=== PATIENT | male | born 1965 | race Caucasian/White ===

== ENCOUNTER 2017-05-02 18:40 | Emergency (ER) | payer OTHER ==
[~2017-05-02] VITALS: Ht 170.2 cm; Wt 99.8 kg
[2017-05-02 19:19] VITALS: BP 121/71
[2017-05-02] MEDS ORDERED: IBUP-1842 PO (19:36)
--- NOTE | 2017-05-02 21:08 | NUR ---
Pt ambulated to bed GI.
--- NOTE | 2017-05-02 21:21 | NUR ---
52/M c/o "staph infection" to bilateral buttocks x2 days. Pt has open lesions to bottom of feet from walking per patient. Hx Hep C and chronic back pain. AOX4, ambulates with steady but uneven gait. Pt denies drainage. Denies fever or chills. Pt reports being homeless at this time. Hx smoking cigaretts and marijuana. Denies drug use or ETOH abuse. VSS. Pt in a gown, resting comfortably in bed.
--- NOTE | 2017-05-02 21:24 | NUR ---
Patient being evaluated by Dr. Livingston at bedside.
[2017-05-02] MEDS ORDERED: HYDROcodone/APAP 5/325 MG 1 TAB TAB PO ONE (21:30)
[2017-05-02] MEDS ORDERED: KETOROLAC 30 MG/ML VIAL IM ONE (21:30)
[2017-05-02 21:58] VITALS: BP 127/82
--- NOTE | 2017-05-02 21:58 | NUR ---
Patient discharged with v/s stable. Written and verbal after care instructions given and explained. Patient alert, oriented and verbalized understanding of instructions. Ambulatory with steady gait. All questions addressed prior to discharge. ID band removed. Patient advised to follow up with PMD. Rx of BACTRIM DS 800/160 MG, TYLENOL NO.3 given. Patient educated on indication of medication including possible reaction and side effects. Opportunity to ask questions provided and answered.
== END 2017-05-02 21:58 | disposition home or self-care (01) ==
LOC: MED 18:40
DX: L98.419 Non-pressure chronic ulcer of buttock with unspecified severity (principal); L97.429 Non-pressure chronic ulcer of left heel and midfoot with unspecified severity; L97.419 Non-pressure chronic ulcer of right heel and midfoot with unspecified severity; J45.909 Unspecified asthma, uncomplicated; I10 Essential (primary) hypertension; Z79.899 Other long term (current) drug therapy; Z91.030 Bee allergy status; Z88.8 Allergy status to other drugs, medicaments and biological substances
CPT/HCPCS: 96372; 99283; J1885

== ENCOUNTER 2017-05-18 06:00 | Emergency (ER) | payer OTHER ==
[~2017-05-18] VITALS: Ht 170.2 cm; Wt 91.2 kg
[~2017-05-18 06:00] MED LIST: MOTRIN400 MG PO; MOTRIN600 MG PO; NORCO 10/325 MG1 TAB PO
[2017-05-18 06:14] VITALS: BP 123/80
[2017-05-18 06:20] VITALS: BP 123/80
--- NOTE | 2017-05-18 06:20 | NUR ---
PATIENT PRESENTS TO ED WITH C/O BACK PAIN X 2 DAYS . PT DENIES N/V/D; SKIN IS PINK/WARM/DRY; AAOX4 WITH EVEN AND STEADY GAIT; LUNGS CLEAR BL; HR EVEN AND REGULAR; PT DENIES ANY FEVER, CP, SOB, OR COUGH AT THIS TIME; PATIENT STATES PAIN OF 7/10 AT THIS TIME; VSS; PATIENT POSITIONED FOR COMFORT; HOB ELEVATED; BEDRAILS UP X2; BED DOWN. ER MD MADE AWARE OF PT STATUS.
[2017-05-18] MEDS ORDERED: KETOROLAC 60 MG/2 ML VIAL IM ONE (06:30)
--- NOTE | 2017-05-18 06:45 | NUR ---
Patient discharged with v/s stable. Written and verbal after care instructions given and explained. Patient alert, oriented and verbalized understanding of instructions. Ambulatory with steady gait. All questions addressed prior to discharge. ID band removed. Patient advised to follow up with PMD. Rx of SOMA AND NORCO given. Patient educated on indication of medication including possible reaction and side effects. Opportunity to ask questions provided and answered.
== END 2017-05-18 06:45 | disposition home or self-care (01) ==
LOC: MED 06:00
DX: M54.42 Lumbago with sciatica, left side (principal); M54.41 Lumbago with sciatica, right side; J45.909 Unspecified asthma, uncomplicated; I10 Essential (primary) hypertension; R03.0 Elevated blood-pressure reading, without diagnosis of hypertension; Z88.8 Allergy status to other drugs, medicaments and biological substances; Z91.030 Bee allergy status
CPT/HCPCS: 96372; 99283; J1885

== ENCOUNTER 2017-05-21 01:56 | Emergency (ER) | payer OTHER ==
[~2017-05-21] VITALS: Ht 170.2 cm; Wt 95.3 kg
[~2017-05-21 01:56] MED LIST changes: +IBUP-1842 PO; -MOTRIN400 MG PO; -MOTRIN600 MG PO; -NORCO 10/325 MG1 TAB PO
[2017-05-21 01:58] VITALS: BP 116/78
--- NOTE | 2017-05-21 02:29 | NUR ---
PT TAKEN TO OF
[2017-05-21 03:00] VITALS: BP 124/75
--- NOTE | 2017-05-21 03:00 | NUR ---
Patient discharged with v/s stable. Written and verbal after care instructions given and explained. Patient alert, oriented and verbalized understanding of instructions. Ambulatory with steady gait. All questions addressed prior to discharge. ID band removed. Patient advised to follow up with PMD. Rx of Bactrim DS given. Patient educated on indication of medication including possible reaction and side effects. Opportunity to ask questions provided and answered.
== END 2017-05-21 03:00 | disposition home or self-care (01) ==
LOC: MED 01:56
DX: Z76.0 Encounter for issue of repeat prescription (principal); L73.9 Follicular disorder, unspecified; J45.909 Unspecified asthma, uncomplicated; I10 Essential (primary) hypertension; Z88.8 Allergy status to other drugs, medicaments and biological substances; Z91.030 Bee allergy status
CPT/HCPCS: 99283

== ENCOUNTER 2017-06-16 23:25 | Emergency (ER) | payer OTHER ==
[~2017-06-16] VITALS: Ht 170.2 cm; Wt 95.3 kg
[2017-06-16 23:40] VITALS: BP 121/72
--- NOTE | 2017-06-17 00:01 | NUR ---
PT TAKEN TO BED 12
--- NOTE | 2017-06-17 00:05 | NUR ---
52/M C/O 03/23 SHARP SHOOTING RT LOWER BACK PAIN RADIATING TO BRITTANY LEGS X 4 DAYS. 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 ER MD MADE AWARE OF PT STATUS.
--- NOTE | 2017-06-17 00:08 | NUR ---
Dr. Livingston evaluating patient at bedside.
[2017-06-17] MEDS ORDERED: KETOROLAC 30 MG/ML VIAL IM ONE (00:20)
[2017-06-17] MEDS ORDERED: HYDROcodone/APAP 5/325 MG 1 TAB TAB PO ONE (00:20)
[2017-06-17 00:55] VITALS: BP 136/78
--- NOTE | 2017-06-17 00:55 | NUR ---
Patient discharged with v/s stable. Written and verbal after care instructions given and explained. Patient alert, oriented and verbalized understanding of instructions. Ambulatory with steady gait. All questions addressed prior to discharge. ID band removed. Patient advised to follow up with PMD. Rx of ULTRAM 50MG ONE TAB PO 4 TIMES A DAY PRN PAIN given. Patient educated on indication of medication including possible reaction and side effects. Opportunity to ask questions provided and answered. HOMELESS PACKET PROVIDED
== END 2017-06-17 00:55 | disposition home or self-care (01) ==
LOC: MED 23:25
DX: M54.41 Lumbago with sciatica, right side (principal); Z88.8 Allergy status to other drugs, medicaments and biological substances; J45.909 Unspecified asthma, uncomplicated; I10 Essential (primary) hypertension
CPT/HCPCS: 96372; 99283; J1885

== ENCOUNTER 2017-06-24 17:26 | Emergency (ER) | payer OTHER ==
[~2017-06-24] VITALS: Ht 162.6 cm; Wt 85.4 kg
--- NOTE | 2017-06-24 17:40 | NUR ---
PT IN RESTROOM IN ER LOBBY
[2017-06-24 18:02] VITALS: BP 148/85
--- NOTE | 2017-06-24 18:59 | NUR ---
Patient to bed 06.
--- NOTE | 2017-06-24 19:13 | NUR ---
Patient being evaluated by Dr. Lowe at bedside.
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
--- NOTE | 2017-06-24 19:50 | NUR ---
Patient discharged with v/s stable. Written and verbal after care instructions given and explained. Patient alert, oriented and verbalized understanding of instructions. Ambulatory with steady gait. All questions addressed prior to discharge. ID band removed. Patient advised to follow up with PMD. Rx of NAPROXEN 500MG AND FLEXERIL 5MG, BACTRIM DS TAB given. Patient educated on indication of medication including possible reaction and side effects. Opportunity to ask questions provided and answered.
[2017-06-24 19:51] VITALS: BP 132/84
== END 2017-06-24 19:50 | disposition home or self-care (01) ==
LOC: MED 17:26
DX: L73.9 Follicular disorder, unspecified (principal); M54.41 Lumbago with sciatica, right side; J45.909 Unspecified asthma, uncomplicated; I10 Essential (primary) hypertension; F17.210 Nicotine dependence, cigarettes, uncomplicated; Z88.8 Allergy status to other drugs, medicaments and biological substances; Z91.030 Bee allergy status
CPT/HCPCS: 99283

== ENCOUNTER 2017-06-28 10:33 | Emergency (ER) | payer OTHER ==
[~2017-06-28] VITALS: Ht 170.2 cm; Wt 85.3 kg
--- NOTE | 2017-06-28 10:33 | NUR ---
Patient was BIB [place] [facility] and taken to OF chair waiting to be evaluated by ER .
[2017-06-28 10:38] VITALS: BP 125/78
--- NOTE | 2017-06-28 10:46 | NUR ---
PATIENT IS A52 YO MALE BIB [facility] FOR PRE BOOK EXAM, HE IS AWAKE AND ALERT, ABLE TO AMBULATE. ON ARRIVAL HE IS C/O CHEST WALL PAIN. HX OF CHRONIC BACK PAIN.
--- NOTE | 2017-06-28 11:11 | NUR ---
PATIENT SIGNED OUT BY DONALD IBARRA AND PLACED IN BED 10 FOR FUJRTHER TESTING.
[2017-06-28] MEDS ORDERED: PIPERACILLIN/TAZOBACTAM 3.375 GM in DEXTROSE 5% 50 ML IV ONE (11:15)
[2017-06-28] MEDS ORDERED: VANCOMYCIN 1,000 MG in DEXTROSE 5% 250 ML IV ONE (11:15)
[2017-06-28] MEDS ORDERED: NACL 0.9% 1,000 ML IV ONE (11:15)
[2017-06-28] MEDS ORDERED: VANCOMYCIN 1,000 MG VIAL ONE (11:25)
[2017-06-28] MEDS ORDERED: PIPERACILLIN/TAZOBACTAM 3.375 GM VIAL IV ONE (11:25)
[2017-06-28 11:37] LABS: BASOPHILS # (AUTO) 0.1 K/uL (0.00-0.22); BASOPHILS % (AUTO) 1.4 % (0.0-2.0); EOSINOPHILS # (AUTO) 0.2 K/uL (0-0.4); EOSINOPHILS % (AUTO) 1.6 % (0.0-4.0); HEMATOCRIT 37.3 % (36-52); HEMOGLOBIN 12.6 g/dL (12.0-18.0); LYMPHOCYTES # (AUTO) 1.6 K/uL (2.0-11.5); LYMPHOCYTES % (AUTO) 16.8 % (20.5-51.1); MEAN CORPUSCULAR HEMOGLOBIN 31 pg (27-31); MEAN CORPUSCULAR HGB CONC 34 g/dL (33-37); MEAN CORPUSCULAR VOLUME 90 fL (80-94); MONOCYTES # (AUTO) 0.9 K/uL (0.8-1.0); NEUTROPHILS # (AUTO) 6.6 K/uL (1.8-7.7); NEUTROPHILS % (AUTO) 70.2 % (42.2-75.2); PLATELET COUNT (AUTO) 301 K/uL (140-450); RED BLOOD CELL COUNT(AUTO) 4.15 MIL/uL (4.20-6.10); RED CELL DISTRIBUTION WIDTH 14.2 % (11.6-13.7); WHITE BLOOD COUNT (AUTO) 9.4 K/uL (4.8-10.8)
--- NOTE | 2017-06-28 11:53 | NUR ---
IV ESTABLISHED AND ALL LABSDRAWN, ANTIBIOTICS STARTED, PATIENT HAS CELLULITIS TO UPPR LIP AND LEFT JAW.
[2017-06-28 12:26] LABS: ANION GAP 9.8 (8-16); CREATININE 0.9 mg/dL (0.7-1.3); POTASSIUM 3.8 mmol/L (3.5-5.1)
[2017-06-28 12:32] LABS: ALBUMIN 3.3 g/dL (3.4-5.0); TOTAL BILIRUBIN 0.5 mg/dL (0.0-1.0)
[2017-06-28] MEDS ORDERED: ACETAMINOPHEN 325 MG TAB PO PRN (13:05)
[2017-06-28] MEDS ORDERED: ONDANSETRON 4 MG/2 ML VIAL IVP PRN (13:05)
--- NOTE | 2017-06-28 13:48 | NUR ---
admitted to /s by dr. arguello, report called and patient transported via wheelchair to /s.
--- NOTE | 2017-06-28 13:57 | NUR ---
ARRIVED ON THE UNIT WITH 2 ER NURSES. PT IS AWAKE, ALERT AND ORIENTED. INTRODUCED MYSELF AND UPDATED THE BOARD. PT IS AMBULATORY. AMBULATED FROM GURNEY TO BED. PT HAS AN IV ON R AC 20G NS BAG 1/[address] OPEN. NOTED THE SWELLING ON UPPER LIP. C/O PAIN IN LOWER EXTREMITIES FROM WALKING TOO MUCH. NO OTHER COMPLAINTS. DENIES PAIN IN THE UPPER LIP. V/S WITHIN NORMAL RANGE. WILL START THE ADMISSION.
[2017-06-28 14:00] VITALS: BP 118/72
--- NOTE | 2017-06-28 15:48 | NUR ---
PT RESTING COMFORTABLY. V/S WITHIN NORMAL RANGE. NO COMPLAINTS AT THIS TIME. WILL CONTINUE TO MONITOR PT.
[2017-06-28 16:00] VITALS: BP 126/99
[2017-06-28] MEDS: HYDROcodone/APAP 5/325 MG 1 TAB TAB PO PRN (18:23)
--- NOTE | 2017-06-28 19:26 | NUR ---
ENDORSED PT TO THE CELLOPHANE WORKER NURSE AT BEDSIDE FOR CONTINUITY OF CARE. PT IN STABLE CONDITION.
--- NOTE | 2017-06-28 19:27 | NUR ---
RECEIVED PT FROM SEUN RN PT IS AAOX4 AMBULATORY WITH DX OF LEFT FACE CELLULITIS DENIES ANY PAIN AT THIS TIME INITIAL ASSESSMENT DONE
[2017-06-28 20:00] VITALS: BP 127/77
[2017-06-28] MEDS: NAPROXEN 375 MG TAB PO SCH (21:00)
--- NOTE | 2017-06-28 21:40 | NUR ---
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
--- NOTE | 2017-06-28 22:00 | NUR ---
PT SLEEPING WELL DENIES ANY PAIN OR DISCOMFORT AT THIS TIME
[2017-06-28] MEDS: PANTOPRAZOLE 40 MG TABEC PO SCH (22:39)
--- NOTE | 2017-06-29 02:00 | NUR ---
PT SLEEPING WELL DENIES ANY PAIN
[2017-06-29] MEDS ORDERED: VANCOMYCIN 1,000 MG VIAL ONE (02:22)
[2017-06-29] MEDS: VANCOMYCIN 1GM/DEXT 5% PREMIX 200 ML IV SCH ×2 (02:27→13:12)
--- NOTE | 2017-06-29 02:27 | NUR ---
at 0227 PT STARTED TO BE INFUSING VANCOMYCIN 1 GRAM IVPB AND END AT 0327 AM
--- NOTE | 2017-06-29 05:43 | NUR ---
PT A NEW IV IS INSERTED ON LEFT FA GAUGE #20 BY TOY DIALLO, DENIES ANY PAIN OR DISCOMFORT
--- NOTE | 2017-06-29 06:55 | NUR ---
PT SLEEPING WELL DENIES ANY PAIN OR DISCOMFORT
[2017-06-29 08:00] VITALS: BP 125/71
[2017-06-29] MEDS ORDERED: VANCOMYCIN PER PHARMACY MC PRN (08:00)
[2017-06-29] MEDS: NAPROXEN 375 MG TAB PO SCH (08:38)
[2017-06-29] MEDS: PANTOPRAZOLE 40 MG TABEC PO SCH (08:38)
--- NOTE | 2017-06-29 08:42 | NUR ---
PATIENT HAS BEEN SCREENED AND CATEGORIZED LOW NUTRITION RISK. PATIENT WILL BE SEEN WITHIN 7 DAYS OF ADMISSION. 07/05/[address]
--- NOTE | 2017-06-29 08:45 | NUR ---
REPORT RECEIVED FROM SHADI RN, PT WALKING AROUND IN ROOM IN NAD, RESP EVEN UNLABORED, SKIN WARM DRY COLOR WNL, SWELLING TO LEFT UPPER LIP AND LEFT CHEEK, NO DRAINAGE NOTED, SKIN INTACT, PLAN OF CARE DISCUSSED, PT VERBALIZED FULL UNDERSTANDING, PT DENIES PAIN OR DISCOMFORT, CALL [place] WITHIN REACH, SIDE RAILS UP, WILL CONTINUE TO MONITOR.
[2017-06-29] MEDS ORDERED: [UNRECOGNIZED DRUG - CODE] PO ×2 (11:52→11:58)
[2017-06-29] MEDS ORDERED: BACL10TA4 PO ×2 (11:52→11:58)
[2017-06-29] MEDS ORDERED: SULF1TAB12 PO ×2 (11:52→11:58)
--- NOTE | 2017-06-29 12:00 | NUR ---
DR SEVILLA AT BEDSIDE, PT TO DC TODAY, PLAN OF CARE DISCUSSED WITH PT, PT AGREEABLE.
[2017-06-29] MEDS: HYDROcodone/APAP 5/325 MG 1 TAB TAB PO PRN (12:41)
--- NOTE | 2017-06-29 13:15 | NUR ---
ROSALIAO STARTED, WILL DC WHEN ROSALIAO DONE, DISCHARGE INSTRUCTION DISCUSSED VERBALLY, PT TO F/U WITH PCP WITHIN 3-5 DAYS, TAKE MEDICATION PRESCRIBED BY DR SEVILLA, PT GIVEN HOMELESS RESOURCES, [facility] INFO AND COUPON, WAIVER SIGNED, AWAITING ELECTRONIC PRESCRIPTION TO BE COMPLETED BY DR SEVILLA.
--- NOTE | 2017-06-29 14:45 | NUR ---
PT STATES HE HAS AN APPOINTMENT WITH [facility] AT 1500, HE CAN NOT WAIT FOR DC PAPERS TO SIGN, UNABLE TO PRINT PAPERS DUE TO UNCOMPLETED ELECTRONIC PRESCRIPTION BY DR SEVILLA, PT LEFT WITHOUT DC PAPERS, PT VERBALIZED UNDERSTANDING OF PICKING UP RX MEDS AT [facility] AND FOLLOW UP WITH PCP IN 3-5 DAYS, PT WALKED OUT WITH STEADY GAIT. Addendum: 06/29/17 at 1513 by Pebbles Giordano RN IV DC'D, CATH TIP INTACT, BLEEDING CONTROLLED, PT ASHLIE WELL.
== END 2017-06-29 15:20 | disposition home or self-care (01) ==
LOC: MED 10:33 → MTU 13:02 → INTOOBSV 13:02 → MTU 13:49
PROVIDERS: ADMIT Hospitalist; ATTEND Hospitalist
DX: L02.02 Furuncle of face (principal); K21.9 Gastro-esophageal reflux disease without esophagitis; I10 Essential (primary) hypertension; J45.909 Unspecified asthma, uncomplicated; Z59.0 Homelessness; Z87.891 Personal history of nicotine dependence; Z86.19 Personal history of other infectious and parasitic diseases
CPT/HCPCS: 36415; 80053; 83605; 85025; 87040; 87081; 96365; 96366; 96367; 99285; G0378; J2543; J3370; J7030; J7060

== ENCOUNTER 2017-07-13 03:55 | Emergency (ER) | payer OTHER ==
[~2017-07-13] VITALS: Ht 170.2 cm; Wt 86.2 kg
[~2017-07-13 03:55] MED LIST changes: +BACL10TA4 PO; -IBUP-1842 PO; +SULF1TAB12 PO; +[UNRECOGNIZED DRUG - CODE] PO
[2017-07-13 04:07] VITALS: BP 121/77
--- NOTE | 2017-07-13 04:15 | NUR ---
AMBULATED TO ER BED 3
--- NOTE | 2017-07-13 04:20 | NUR ---
52/M CAME IN W C/O 02/20 PAIN TO RT HIP RADIATING TO RT KNEE X 1 MONTH. 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 LAST TOOK IBUPROFEN YESTERDAY AT 0800, DENIES RELIEF. DENIES INJURY/TRAUMA, ABLE TO AMBULATE, FULL ROM, +PMSC TO RLE. PMH: HEP C, SCIATICA
[2017-07-13] MEDS ORDERED: KETOROLAC 60 MG/2 ML VIAL IM ONE (04:35)
--- NOTE | 2017-07-13 05:45 | NUR ---
Patient discharged with v/s stable. Written and verbal after care instructions given and explained. Patient alert, oriented and verbalized understanding of instructions. Ambulatory with steady gait. All questions addressed prior to discharge. ID band removed. Patient advised to follow up with PMD. Rx of NAPROSYN AND SOMA given. Patient educated on indication of medication including possible reaction and side effects. Opportunity to ask questions provided and answered. Patient given written and verbal discharge instructions and verbalizes understanding. Given copies of tests performed during visit. Patient is awake, alert and oriented. Ambulatory with steady gait. Refuses offer of halfway placement. Given list of available shelters in surrounding areas.
[2017-07-13 05:46] VITALS: BP 138/78
== END 2017-07-13 05:45 | disposition home or self-care (01) ==
LOC: MED 03:55
DX: M54.31 Sciatica, right side (principal); J45.909 Unspecified asthma, uncomplicated; I10 Essential (primary) hypertension; Z88.8 Allergy status to other drugs, medicaments and biological substances; Z91.030 Bee allergy status
CPT/HCPCS: 96372; 99283; J1885

== ENCOUNTER 2017-08-10 19:22 | Emergency (ER) | payer OTHER ==
[~2017-08-10] VITALS: Ht 170.2 cm; Wt 84.9 kg
[2017-08-10 19:45] VITALS: BP 124/79
--- NOTE | 2017-08-10 21:50 | NUR ---
52.M CAME IN WITH C/O CHRONIC BACK PAIN WITH MUSCLE SPASMS RADIATING TO RT KNEE/LEG R/T SCIATICA. DENIES WEAKNESS, NUMBNESS/TINGLING AT THIS TIME, NO INJURY/TRAUMA REPORTED. PT RUN OUT OF PAIN MEDS AND DOES NOT HAVE PCP AT THIS TIME. PT STATES ITS PAINFUL TO AMBULATE, AMBULATED TO BED WITH STEADY GAIT. DENIES TAKING PAIN MEDS TODAY.
[2017-08-10] MEDS ORDERED: IBUPROFEN 800 MG TAB PO ONE (22:30)
--- NOTE | 2017-08-10 22:50 | NUR ---
Patient discharged with v/s stable. Written and verbal after care instructions given and explained. Patient alert, oriented and verbalized understanding of instructions. Ambulatory with steady gait. All questions addressed prior to discharge. ID band removed. Patient advised to follow up with PMD. Rx of SOMA, IBUPROFEN AND TRAMADOL given. Patient educated on indication of medication including possible reaction and side effects. Opportunity to ask questions provided and answered.
[2017-08-10 22:58] VITALS: BP 136/72
== END 2017-08-10 22:50 | disposition home or self-care (01) ==
LOC: MED 19:22
DX: M54.5 Low back pain (principal); G89.29 Other chronic pain; J45.909 Unspecified asthma, uncomplicated; I10 Essential (primary) hypertension; M54.30 Sciatica, unspecified side; Z88.8 Allergy status to other drugs, medicaments and biological substances
CPT/HCPCS: 99283

== ENCOUNTER 2017-08-20 01:43 | Inpatient (IN) | payer OTHER ==
[~2017-08-20] VITALS: Ht 170.2 cm; Wt 85.7 kg
[2017-08-20 01:47] VITALS: BP 109/61
--- NOTE | 2017-08-20 01:53 | NUR ---
TO LOBBY, EDGAR DRAKE,A/W BED, TATIANNA NOTED
--- NOTE | 2017-08-20 05:09 | NUR ---
PT AMBULATED TO ER OF1
--- NOTE | 2017-08-20 05:10 | NUR ---
PATIENT PRESENTS TO ED WITH REDNESS, SWELLING, PAIN ON HIS LEFT LEG STARTED TODAY PT DENIES N/V/D; AAOX4 WITH EVEN AND STEADY GAIT; LUNGS CLEAR BL; HR EVEN AND REGULAR; PT DENIES ANY FEVER, CP, SOB, OR COUGH AT THIS TIME; PATIENT STATES PAIN OF 7/10 AT THIS TIME; VSS; PATIENT POSITIONED FOR COMFORT; HOB ELEVATED; BEDRAILS UP X2; BED DOWN. ER MD MADE AWARE OF PT STATUS.
--- NOTE | 2017-08-20 08:12 | NUR ---
PATIENT TAKEN TO US/XR VIA WC
--- NOTE | 2017-08-20 08:31 | NUR ---
PATIENT MOVED TO BED#2
[2017-08-20 09:20] LABS: MEAN CORPUSCULAR HEMOGLOBIN 28 pg (27-31)
[2017-08-20 09:31] LABS: HEMATOCRIT 45.3 % (36-52); HEMOGLOBIN 14.6 g/dL (12.0-18.0); MEAN CORPUSCULAR HGB CONC 32 g/dL (33-37); MEAN CORPUSCULAR VOLUME 88 fL (80-94); PLATELET COUNT (AUTO) 234 K/uL (140-450); RED BLOOD CELL COUNT(AUTO) 5.18 MIL/uL (4.20-6.10); RED CELL DISTRIBUTION WIDTH 13.3 % (11.6-13.7); WHITE BLOOD COUNT (AUTO) 22.5 K/uL (4.8-10.8)
[2017-08-20 09:43] LABS: BASOPHILS % (MANUAL) 0 % (0-2); EOSINOPHILS % (MANUAL) 0 % (0-4); LYMPHOCYTES % (MANUAL) 12 % (20-46); MONOCYTES % (MANUAL) 3 % (5-12)
[2017-08-20 10:02] LABS: PROTHROMBIN TIME 10.7 secs (10.8-13.4)
[2017-08-20 10:54] LABS: ANION GAP 18.5 (8-16); CARBON DIOXIDE 25.8 mmol/L (21-32); POTASSIUM 3.3 mmol/L (3.5-5.1)
[2017-08-20 10:55] LABS: CREATININE 1.1 mg/dL (0.7-1.3); TOTAL BILIRUBIN 0.8 mg/dL (0.0-1.0)
[2017-08-20 10:56] LABS: ALBUMIN 3.9 g/dL (3.4-5.0)
[2017-08-20] MEDS ORDERED: ENOXAPARIN 80 MG/0.8 ML SYR SUBQ ONE (11:00)
[2017-08-20] MEDS ORDERED: CLINDAMYCIN 600 MG in DEXTROSE 5% 50 ML IV ONE (11:20)
[2017-08-20] MEDS ORDERED: ENOXAPARIN 100 MG/ML SYR SUBQ ONE (11:37)
[2017-08-20] MEDS ORDERED: CLINDAMYCIN 600 MG/4 ML VIAL ONE (11:51)
[2017-08-20] MEDS ORDERED: ACETAMINOPHEN EXTRA STRENGTH 500 MG TAB PO ONE (12:05)
[2017-08-20] MEDS: NACL 0.9% 1,000 ML IV SCH ×2 (12:12→22:12)
[2017-08-20] MEDS ORDERED: VANCOMYCIN PER PHARMACY MC PRN (12:15)
[2017-08-20] MEDS ORDERED: ONDANSETRON 4 MG/2 ML VIAL IVP PRN (12:15)
--- NOTE | 2017-08-20 12:50 | NUR ---
Patient will be admitted to care of DR SARABIA. Admited to TELE. Will go to room 118. Belongings list completed. Report to TOY LORA.
[2017-08-20] MEDS ORDERED: PIPERACILLIN/TAZOBACTAM 3.375 GM in DEXTROSE 5% 50 ML IV SCH (13:00)
[2017-08-20 13:15] VITALS: BP 118/58
--- NOTE | 2017-08-20 13:15 | NUR ---
PATIENT ADMITTED TO THE UNIT FROM THE EMERGENCY ROOM. PT AAOX4. PATIENT IS ROOM AIR AND NO SIGNS OF RESPIRATORY DISTRESS OR SHORTNESS OF BREATH. IV LINE NOTED ON THE LEFT FOREARM SL. ERYTHEMA AND SWELLING NOTED ON LEFT LOWER LEG. PATIENT COMPLAINS OF LEFT LEG PAIN 7/10. WILL MEDICATE PATIENT. TEMPERATURE OF PATIENT IS 100.2. COOLING MEASURES IN PLACE. PATIENT PLACED ON TELE MONITORING. BED LOWERED AND CALL LIGHT WITHIN REACH OF PATIENT. WILL CONTINUE TO MONITOR PATIENT.
[2017-08-20] MEDS: PIPER/TAZO 3.375GM/D5W PREMIX 50 ML IV SCH ×2 (13:25→20:53)
[2017-08-20 13:34] LABS: BARBITURATE, URINE NEG. ng/ml (NEG <=200); BENZODIAZEPINE, URINE NEG. ng/mL (NEG <=200); CANNABINOID, URINE POS. ng/mL (NEG <=50); COCAINE, URINE NEG. ng/mL (NEG <=300); OPIATE, URINE NEG. ng/mL (NEG <=2000); PHENCYCLIDINE SCREEN,URINE NEG. ng/mL (NEG <=25)
[2017-08-20] MEDS: MORPHINE SULFATE 2 MG/ML SYR IVP PRN ×2 (13:34→20:53)
[2017-08-20 13:39] LABS: APPEARANCE,URINE CLEAR (CLEAR); BILIRUBIN,URINE 1+ (NEGATIVE); BLOOD, URINE 1+ (NEGATIVE); COLOR,URINE ORANGE (YELLOW); LEUKOCYTE ESTERASE ,URINE NEGATIVE (NEGATIVE); NITRITE, URINE NEGATIVE (NEGATIVE); PH,URINE 5.5 (5.0-9.0); UGLUCOSE NEGATIVE (NEGATIVE)
[2017-08-20 13:45] LABS: RBC,URINE 0-5 (RARE) /HPF (0-5); WBC,URINE 0-5 (RARE) /HPF (0-5)
[2017-08-20] MEDS: VANCOMYCIN 1GM/DEXT 5% PREMIX 200 ML IV SCH (14:22)
[2017-08-20] MEDS ORDERED: ALBUTEROL SULFATE/IPRATROPIU 3 ML SOL IH PRN (16:10)
[2017-08-20 18:00] VITALS: BP 127/62
--- NOTE | 2017-08-20 18:00 | NUR ---
TEMPERATURE IS 100.2 AT THIS TIME. PRN TYLENOL ADMINISTERED TO REDUCE TEMPERATURE. COOLING MEASURES IN PLACE. WILL CONTINUE TO MONITOR PATIENT.
[2017-08-20] MEDS: ACETAMINOPHEN 325 MG TAB PO PRN (18:04)
--- NOTE | 2017-08-20 19:20 | NUR ---
TEMP 99.8 TAKEN ORALLY. PATIENT REPORT GIVEN AT BEDSIDE. PATIENT ENDORSED IN STABLE CONDITION.
--- NOTE | 2017-08-20 19:21 | NUR ---
RECEIVED HANDOFF REPORT FROM AM RN. PATIENT A&OX4. PATIENT STATES PAIN WILL MEDICATE ORDERED. PATIENT IV PATENT AND INTACT. NO SIGNS OR SYMPTOMS OF ACUTE DISTRESS NOTED. CALL LIGHT WITHIN REACH. WILL CONTINUE TO MONITOR.
[2017-08-20 20:00] VITALS: BP 114/62
--- NOTE | 2017-08-20 20:53 | NUR ---
PM MEDS GIVEN WITH EDUCATION. PATIENT VERBALIZED UNDERSTANDING. PATIENT EDUCATED REGARDING DIAGNOSIS DVT. PATIENT TOLD TO STAY IN BED, WILL PROVIDE FREQUENT TOILETING AND PROVIDE ASSISTANCE WITH ACTIVITY. PATIENT VERBALIZED UNDERSTANDING. PATIENT NOT IN DISTRESS. TEMP IS 99.9. SAFETY MEASURES ENSURED. WILL CONTINUE TO MONITOR.
[2017-08-20] MEDS: ENOXAPARIN 80 MG/0.8 ML SYR SUBQ SCH (21:05)
[2017-08-21] VITALS: BP 135/72
[2017-08-21] MEDS: ACETAMINOPHEN 325 MG TAB PO PRN (01:36)
--- NOTE | 2017-08-21 01:45 | NUR ---
PATIENT HAS FEVER 103.1. TYLENOL GIVEN. COOLING MEASURES IN USE. WILL CONTINUE TO MONITOR.
[2017-08-21] MEDS: VANCOMYCIN 1GM/DEXT 5% PREMIX 200 ML IV SCH (02:48)
[2017-08-21 04:00] VITALS: BP 101/57
--- NOTE | 2017-08-21 04:03 | NUR ---
PATIENTS TEMP IS 99.4. PATIENT DENIES PAIN. NO SIGNS OR SYMPTOMS OF ACUTE DISTRESS NOTED. CALL LIGHT WITHIN REACH. WILL CONTINUE TO MONITOR.
[2017-08-21] MEDS: PIPER/TAZO 3.375GM/D5W PREMIX 50 ML IV SCH ×3 (04:49→20:00)
[2017-08-21] MEDS: NACL 0.9% 1,000 ML IV SCH ×3 (05:43→20:00)
[2017-08-21 06:58] LABS: BASOPHILS # (AUTO) 0.4 K/uL (0.00-0.22); BASOPHILS % (AUTO) 3.4 % (0.0-2.0); EOSINOPHILS % (AUTO) 0.1 % (0.0-4.0); HEMOGLOBIN 12.8 g/dL (12.0-18.0); LYMPHOCYTES # (AUTO) 2.3 K/uL (2.0-11.5); LYMPHOCYTES % (AUTO) 20.1 % (20.5-51.1); MEAN CORPUSCULAR HEMOGLOBIN 29 pg (27-31); MEAN CORPUSCULAR HGB CONC 34 g/dL (33-37); MEAN CORPUSCULAR VOLUME 86 fL (80-94); MONOCYTES # (AUTO) 0.9 K/uL (0.8-1.0); MONOCYTES % (AUTO) 7.7 % (1.7-9.3); NEUTROPHILS # (AUTO) 8.1 K/uL (1.8-7.7); NEUTROPHILS % (AUTO) 68.7 % (42.2-75.2); PLATELET COUNT (AUTO) 199 K/uL (140-450); RED BLOOD CELL COUNT(AUTO) 4.42 MIL/uL (4.20-6.10); RED CELL DISTRIBUTION WIDTH 13.1 % (11.6-13.7); WHITE BLOOD COUNT (AUTO) 11.7 K/uL (4.8-10.8)
--- NOTE | 2017-08-21 07:05 | NUR ---
RECEIVED PATIENT REPORT AT BEDSIDE FROM NIGHTSHIFT NURSE. PATIENT IS ASLEEP BUT AROUSABLE. PATIENT IS AAOX4 AT THIS TIME. PATIENT DOES NOT COMPLAIN OF PAIN AT THIS TIME. LEFT LEG HAS ERYTHEMA BUT LESS SWELLING THAN YESTERDAY. INSTRUCTED PATIENT TO CALL FOR THE NURSE IF HE NEEDS ANYTHING. CALL LIGHT WITHIN REACH AND BED LOWERED. PATIENT IS IN STABLE CONDITION. WILL CONTINUE TO MONITOR PATIENT.
--- NOTE | 2017-08-21 07:25 | NUR ---
ENDORSED PLAN OF CARE TO AM RN. PATIENT IN STABLE CONDITION.
[2017-08-21 07:40] VITALS: BP 115/64
[2017-08-21 08:05] LABS: ALBUMIN 2.4 g/dL (3.4-5.0); ANION GAP 13.2 (8-16); CARBON DIOXIDE 26.3 mmol/L (21-32); CREATININE 0.9 mg/dL (0.7-1.3); POTASSIUM 3.5 mmol/L (3.5-5.1); TOTAL BILIRUBIN 0.6 mg/dL (0.0-1.0)
--- NOTE | 2017-08-21 08:52 | NUR ---
PATIENT HAS BEEN SCREENED AND CATEGORIZED HIGH NUTRITION RISK. PATIENT WILL BE SEEN IN 1-2 DAYS. 08/20/17-08/21/[address]
[2017-08-21] MEDS: ENOXAPARIN 80 MG/0.8 ML SYR SUBQ SCH (08:54)
[2017-08-21] MEDS: MORPHINE SULFATE 2 MG/ML SYR IVP PRN ×4 (09:18→23:00)
[2017-08-21 12:00] VITALS: BP 131/67
--- NOTE | 2017-08-21 15:28 | NUR ---
CM NOTE INITIAL REVIEW FAXED TO [facility] [phone] [facility] PH# [phone]
[2017-08-21 16:00] VITALS: BP 105/64
[2017-08-21] MEDS ORDERED: CHLORHEXADINE GLUC 2% CLOTH TP SCH (16:00)
[2017-08-21] MEDS: VANCOMYCIN 1,250 MG in DEXTROSE 5% 250 ML IV SCH (16:53)
--- NOTE | 2017-08-21 19:25 | NUR ---
PATIENT REPORT GIVEN AT BEDSIDE. PATIENT ENDORSED IN STABLE CONDITION
--- NOTE | 2017-08-21 19:27 | NUR ---
RECEIVED PT AWAKE ON BED WATCHING TV, VITAL SIGNS STABLE, AFEBRILE-98.9 TEMP, TOLERABLE PAIN AT THIS TIME 3/10, LEFT LEG SWOLLEN AND RED, IVF INFUSING WELL, PLAN OF CARE DISCUSSED, SAFETY MEASURES IN PLACE, MAINTAINED ON CONTACT ISOLATION, CALL LIGHT WITHIN REACH.
[2017-08-21 20:00] VITALS: BP 109/62
--- NOTE | 2017-08-21 20:10 | NUR ---
DUE IV ANTIBIOTIC ADMINISTERED, PT VOIDING FREELY PER URINAL, ALL NEEDS ATTENDED.
[2017-08-22] VITALS: BP 112/65
--- NOTE | 2017-08-22 | NUR ---
PT SLEEPING, EASILY AROUSABLE, VITAL SIGNS STABLE, AFEBRILE, DENIES ANY PAIN, MEDICATED EARLIER WITH MORPHINE, IVF INFUSING WELL, CONTINUE TO MONITOR CLOSELY.
[2017-08-22] MEDS: VANCOMYCIN 1,250 MG in DEXTROSE 5% 250 ML IV SCH ×2 (02:48→14:30)
--- NOTE | 2017-08-22 03:40 | NUR ---
PT SLEEPING, EASILY AROUSABLE, VITAL SIGNS STABLE, DENIES ANY PAIN, MONITORED CLOSELY.
[2017-08-22 04:00] VITALS: BP 108/60
[2017-08-22] MEDS: PIPER/TAZO 3.375GM/D5W PREMIX 50 ML IV SCH ×2 (05:08→13:20)
--- NOTE | 2017-08-22 05:10 | NUR ---
DUE IV ANTIBIOTIC ADMINISTERED.
--- NOTE | 2017-08-22 06:30 | NUR ---
CALLED RADIOLOGY AND SPOKE TO BAM TO FOLLOW UP RESULT OF US VENOUS OF LEFT LOWER EXTREMITY DONE YESTERDAY, SHE SAID SHE WILL FOLLOW IT UP WITH [facility].
[2017-08-22] MEDS: MORPHINE SULFATE 2 MG/ML SYR IVP PRN ×3 (06:51→15:41)
--- NOTE | 2017-08-22 07:15 | NUR ---
PT AWAKE, NO SIGNS OF PAIN, BEDSIDE REPORT GIVEN TO [place] RN FOR CONTINUITY OF CARE.
--- NOTE | 2017-08-22 07:16 | NUR ---
RECEIVED REPORT FROM BONDING MOLDER RN AT BEDSIDE FOR CONTINUITY OF CARE. UPDATED BOARD. PT AWAKE ON BED WATCHING TV, VITAL SIGNS STABLE, ORAL TEMP 100.0, LEFT LEG SWOLLEN AND RED, NS INFUSING WELL AT L AC #20 G AT 50 ML/HR, PLAN OF CARE DISCUSSED, SAFETY MEASURES IN PLACE, MAINTAINED ON CONTACT ISOLATION, CALL LIGHT WITHIN REACH, WILL CONTINUE TO MONITOR PATIENT.
[2017-08-22 07:57] LABS: BASOPHILS # (AUTO) 0.2 K/uL (0.00-0.22); BASOPHILS % (AUTO) 2.2 % (0.0-2.0); EOSINOPHILS # (AUTO) 0.1 K/uL (0-0.4); EOSINOPHILS % (AUTO) 0.7 % (0.0-4.0); HEMATOCRIT 35.3 % (36-52); HEMOGLOBIN 11.8 g/dL (12.0-18.0); LYMPHOCYTES # (AUTO) 1.8 K/uL (2.0-11.5); LYMPHOCYTES % (AUTO) 15.7 % (20.5-51.1); MEAN CORPUSCULAR HEMOGLOBIN 29 pg (27-31); MEAN CORPUSCULAR HGB CONC 34 g/dL (33-37); MEAN CORPUSCULAR VOLUME 87 fL (80-94); MONOCYTES # (AUTO) 1.4 K/uL (0.8-1.0); MONOCYTES % (AUTO) 12.5 % (1.7-9.3); NEUTROPHILS # (AUTO) 7.8 K/uL (1.8-7.7); NEUTROPHILS % (AUTO) 68.9 % (42.2-75.2); PLATELET COUNT (AUTO) 217 K/uL (140-450); RED BLOOD CELL COUNT(AUTO) 4.04 MIL/uL (4.20-6.10); RED CELL DISTRIBUTION WIDTH 13.2 % (11.6-13.7); WHITE BLOOD COUNT (AUTO) 11.3 K/uL (4.8-10.8)
[2017-08-22 08:00] VITALS: BP 108/67
[2017-08-22 08:47] LABS: ALBUMIN 2.3 g/dL (3.4-5.0); ANION GAP 13.3 (8-16); CARBON DIOXIDE 25.4 mmol/L (21-32); CREATININE 0.8 mg/dL (0.7-1.3); POTASSIUM 3.7 mmol/L (3.5-5.1); TOTAL BILIRUBIN 0.4 mg/dL (0.0-1.0)
[2017-08-22] MEDS ORDERED: ENOXAPARIN 40 MG/0.4 ML SYR SUBQ SCH (09:00)
--- NOTE | 2017-08-22 09:40 | NUR ---
ADMINISTERED MORNING MEDICATION. ORAL TEMP 98.2. PATIENT TOLERATED IT WELL. PATIENT ASKED FOR PAIN MEDICATION. EXPLAINED TO PATIENT WHEN NEXT SCHEDULE PRN MED WILL BE DUE. PATIENT VERBALIZED UNDERSTANDING. SAFETY PRECAUTIONS IN PLACE. CALL LIGHT WITHIN REACH. WILL CONTINUE TO MONITOR PATIENT.
[2017-08-22 12:00] VITALS: BP 114/60
--- NOTE | 2017-08-22 12:00 | NUR ---
PT EATING LUNCH. NO SIGNS OF DISTRESS. NO COMPLAINTS AT THIS TIME. WILL CONTINUE TO MONITOR PT.
--- NOTE | 2017-08-22 14:09 | NUR ---
CM NOTE CONCURRENT REVIEW FAXED TO [facility] [phone] [facility] # [phone]
--- NOTE | 2017-08-22 15:00 | NUR ---
DISCHARGE GIVEN TO PT. PT VERBALIZED UNDERSTANDING. REMOVED IV, CANNULA INTACT. NO BLEEDING NOTED. REMOVED ID BANDS. TELE MONITOR REMOVED. PT WILL GET DRESSED AND GATHER ALL PERSONAL BELONGINGS. WILL LET US KNOW WHEN HE IS READY TO GO. Addendum: 08/22/17 at 1735 by Joann Ayala RN CORRECTION ON TIME 1700.
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
[2017-08-22] MEDS ORDERED: ACET-2858 PO (15:24)
[2017-08-22] MEDS ORDERED: SULF-59 PO (15:25)
[2017-08-22] MEDS ORDERED: CEPH250C16 PO (15:26)
[2017-08-22 16:00] VITALS: BP 118/67
[2017-08-22] MEDS ORDERED: MUPIROCIN 2% OINT 22 GM TUBE TP SCH (16:00)
== END 2017-08-22 17:15 | disposition home or self-care (01) | DRG 720 ==
LOC: MED 01:43 → MTU 12:15
PROVIDERS: ADMIT Hospitalist; ATTEND Hospitalist
DX: A41.9 Sepsis, unspecified organism (principal); I82.402 Acute embolism and thrombosis of unspecified deep veins of left lower extremity; L03.116 Cellulitis of left lower limb; J45.909 Unspecified asthma, uncomplicated; F17.210 Nicotine dependence, cigarettes, uncomplicated; Z59.0 Homelessness; Z88.8 Allergy status to other drugs, medicaments and biological substances; Z91.030 Bee allergy status
CPT/HCPCS: 36415; 71045; 73630; 80053; 80202; 80305; 81001; 82550; 83605; 84484; 85025; 85379; 85610; 85651; 85730; 86140; 87040; 87081; 93005; 93971; 96365; 96372; 99285; J1650; J2270; J2543; J3370; J3490; J7030; J7060; Q0092

== ENCOUNTER 2017-08-26 05:36 | Emergency (ER) | payer OTHER ==
[~2017-08-26] VITALS: Ht 160 cm; Wt 79.8 kg
[~2017-08-26 05:36] MED LIST changes: +ACET-2858 PO; +CEPH250C16 PO; +SULF-59 PO; -SULF1TAB12 PO; -[UNRECOGNIZED DRUG - CODE] PO
[2017-08-26 05:40] VITALS: BP 132/88
[2017-08-26] MEDS ORDERED: CLINDAMYCIN 900 MG in DEXTROSE 5% 100 ML IV ONE (06:00)
[2017-08-26] MEDS ORDERED: NACL 0.9% 1,000 ML IV ONE (06:00)
[2017-08-26] MEDS ORDERED: CLINDAMYCIN 900 MG/6 ML VIAL IV ONE (06:35)
[2017-08-26 06:57] LABS: BASOPHILS # (AUTO) 0.3 K/uL (0.00-0.22); BASOPHILS % (AUTO) 3.8 % (0.0-2.0); EOSINOPHILS # (AUTO) 0.2 K/uL (0-0.4); EOSINOPHILS % (AUTO) 2.4 % (0.0-4.0); HEMATOCRIT 33.9 % (36-52); HEMOGLOBIN 11.3 g/dL (12.0-18.0); LYMPHOCYTES # (AUTO) 1.9 K/uL (2.0-11.5); MEAN CORPUSCULAR HEMOGLOBIN 29 pg (27-31); MEAN CORPUSCULAR HGB CONC 33 g/dL (33-37); MEAN CORPUSCULAR VOLUME 87 fL (80-94); MONOCYTES # (AUTO) 0.9 K/uL (0.8-1.0); MONOCYTES % (AUTO) 11.6 % (1.7-9.3); NEUTROPHILS # (AUTO) 4.5 K/uL (1.8-7.7); NEUTROPHILS % (AUTO) 58.2 % (42.2-75.2); PLATELET COUNT (AUTO) 337 K/uL (140-450); RED CELL DISTRIBUTION WIDTH 13.4 % (11.6-13.7); WHITE BLOOD COUNT (AUTO) 7.8 K/uL (4.8-10.8)
[2017-08-26 07:11] LABS: CARBON DIOXIDE 25.5 mmol/L (21-32); CREATININE 1.9 mg/dL (0.7-1.3); POTASSIUM 3.5 mmol/L (3.5-5.1)
[2017-08-26 07:18] LABS: ALBUMIN 3.1 g/dL (3.4-5.0); TOTAL BILIRUBIN 0.3 mg/dL (0.0-1.0)
[2017-08-26 07:57] VITALS: BP 119/64
== END 2017-08-26 07:57 | disposition home or self-care (01) ==
LOC: MED 05:36
DX: L03.114 Cellulitis of left upper limb (principal); R03.0 Elevated blood-pressure reading, without diagnosis of hypertension; F17.210 Nicotine dependence, cigarettes, uncomplicated; F12.10 Cannabis abuse, uncomplicated; Z91.030 Bee allergy status
CPT/HCPCS: 36415; 80053; 85025; 96365; 99284; J3490

== ENCOUNTER 2017-10-08 01:29 | Emergency (ER) | payer OTHER ==
[~2017-10-08] VITALS: Ht 170.2 cm; Wt 83.9 kg
--- NOTE | 2017-10-08 01:36 | NUR ---
PT AMBULATED TO CHAIR A
[2017-10-08 01:40] VITALS: BP 114/85
--- NOTE | 2017-10-08 01:44 | NUR ---
52Y/M PT. PRESENTS TO ED WITH C/O BCHRONIC BACK PAIN. NO INJURY NOR TRAUMA. PT. HX. CHRONIC BACK PAIN. AAO X4, AMBULATORY WITH STEDAY GAIT. C/O PAIN 03/23. VSS, ER MADE AWARE OF PT. STATUS.
--- NOTE | 2017-10-08 02:10 | NUR ---
Patient being evaluated by at bedside.
[2017-10-08] MEDS ORDERED: KETOROLAC 30 MG/ML VIAL IM ONE (02:15)
[2017-10-08 02:33] VITALS: BP 110/75
--- NOTE | 2017-10-08 02:33 | NUR ---
Patient discharged with v/s stable. Written and verbal after care instructions given and explained. Patient alert, oriented and verbalized understanding of instructions. Ambulatory with steady gait. All questions addressed prior to discharge. ID band removed. Patient advised to follow up with PMD. Rx of PERCOGESIC 500/12.5MG, NAPROSYN 500 MG given. Patient educated on indication of medication including possible reaction and side effects. Opportunity to ask questions provided and answered.
== END 2017-10-08 02:33 | disposition home or self-care (01) ==
LOC: MED 01:29
DX: M79.604 Pain in right leg (principal); M79.605 Pain in left leg; J45.909 Unspecified asthma, uncomplicated; Z79.899 Other long term (current) drug therapy; Z88.8 Allergy status to other drugs, medicaments and biological substances; Z91.030 Bee allergy status; Z59.0 Homelessness
CPT/HCPCS: 96372; 99283; J1885

== ENCOUNTER 2017-12-19 02:35 | Emergency (ER) | payer OTHER ==
[~2017-12-19] VITALS: Ht 170.2 cm; Wt 79.4 kg
[2017-12-19 02:35] VITALS: BP 121/75
--- NOTE | 2017-12-19 02:38 | NUR ---
PT BIB [facility] TO ER BED 4
--- NOTE | 2017-12-19 02:40 | NUR ---
52/M BIBA. BYSTANDER FROM [employer] CALLED 911. S/P FALL, PT DENIES HEAD TRAUMA OR LOC. PT STATED HE WAS "WALKING UP THE CURB AND FELL." 6/10 SHARP LOWER BACK PAIN, RADIATING TO R LEG. PT DENIES CP, SOB, N/V/D, DYSURIA. AOX4, AMBULATORY, RR EVEN AND UNLABORED. PT IS HOMELESS, DENIES ALCOHOL ABUSE. REPORTS SMOKING, MARIJUANA USE. HX CHRONIC BACK PAIN, ANXIETY, ASTHMA.
[2017-12-19] MEDS ORDERED: HYDROcodone/APAP 5/325 MG 1 TAB TAB PO ONE (03:35)
--- NOTE | 2017-12-19 04:22 | NUR ---
PT SLEEPING COMFORTABLY, RR EVEN AND UNLABORED. ALL NEEDS MET.
[2017-12-19 05:15] VITALS: BP 100/60
--- NOTE | 2017-12-19 05:15 | NUR ---
Patient discharged with v/s stable. Written and verbal after care instructions given and explained. Patient alert, oriented and verbalized understanding of instructions. Ambulatory with steady gait. All questions addressed prior to discharge. ID band removed. Patient advised to follow up with PMD. Rx of IBUPROFEN 600MG given, OTC TYLENOL 500MG. Patient educated on indication of medication including possible reaction and side effects. Opportunity to ask questions provided and answered.
== END 2017-12-19 05:15 | disposition home or self-care (01) ==
LOC: MED 02:35
DX: M19.171 Post-traumatic osteoarthritis, right ankle and foot (principal); M17.11 Unilateral primary osteoarthritis, right knee; J45.909 Unspecified asthma, uncomplicated; F17.210 Nicotine dependence, cigarettes, uncomplicated; Z79.899 Other long term (current) drug therapy; Z88.8 Allergy status to other drugs, medicaments and biological substances; Z91.030 Bee allergy status; Z59.0 Homelessness
CPT/HCPCS: 73562; 73630; 81002; 99284; Q0092

== ENCOUNTER 2018-01-03 03:10 | Emergency (ER) | payer OTHER ==
[~2018-01-03] VITALS: Ht 170.2 cm; Wt 79.4 kg
== END 2018-01-03 03:39 | disposition home or self-care (01) ==
LOC: MED 03:10
DX: G89.29 Other chronic pain (principal); M54.40 Lumbago with sciatica, unspecified side; R03.0 Elevated blood-pressure reading, without diagnosis of hypertension; J45.909 Unspecified asthma, uncomplicated; Z79.899 Other long term (current) drug therapy; Z88.8 Allergy status to other drugs, medicaments and biological substances; Z91.030 Bee allergy status
CPT/HCPCS: 99283

== ENCOUNTER 2018-01-04 09:24 | Emergency (ER) | payer OTHER ==
[~2018-01-04] VITALS: Ht 170.2 cm; Wt 79.4 kg
[2018-01-04 09:37] VITALS: BP 121/74
[2018-01-04] MEDS: MORPHINE SULFATE 4 MG/ML SYR IM ONE (09:55)
[2018-01-04 10:48] VITALS: BP 133/81
== END 2018-01-04 10:49 | disposition home or self-care (01) ==
LOC: MED 09:24
DX: G89.29 Other chronic pain (principal); M54.5 Low back pain; J45.909 Unspecified asthma, uncomplicated; Z79.899 Other long term (current) drug therapy; Z88.8 Allergy status to other drugs, medicaments and biological substances; Z91.030 Bee allergy status
CPT/HCPCS: 72100; 96372; 99284; J2270

== ENCOUNTER 2018-01-19 23:03 | Emergency (ER) | payer OTHER ==
[~2018-01-19] VITALS: Ht 170.2 cm; Wt 70.9 kg
[2018-01-19 23:10] VITALS: BP 121/82
--- NOTE | 2018-01-19 23:25 | NUR ---
PT AMBULATED TO ER BED 09
--- NOTE | 2018-01-19 23:28 | NUR ---
ER AT BEDSIDE FOR EVAL
--- NOTE | 2018-01-19 23:30 | NUR ---
Pt presents c/o pain in L ANKLE SHOOTING UP TO L LOWER BACK. PAIN IS 7/10 SHOOTING. STATES HE TOOK 8 ALEVE TODAY WITH NO RELIEF. PT DENIES N/V/D; SKIN IS INTACT, PINK/WARM/DRY; AAOX4, PERRL; LUNGS CLEAR BL, BREATHING UNLABORED; HR EVEN AND REGULAR, BL PERIPHERAL PULSES PRESENT; BS ACTIVE X4, NO TENDERNESS TO PALPATION, NO HEPATOSPLENOMEGALLY PALPATED, RESONANT TO PERCUSSION; PT DENIES ANY FEVER, CP, SOB, OR COUGH AT THIS TIME; PT STATES 7/10 PAIN AT THIS TIME; VSS; PATIENT POSITIONED FOR COMFORT; HOB ELEVATED; BEDRAILS UP X2; BED DOWN.
--- NOTE | 2018-01-20 00:02 | NUR ---
PT ON MART[place]NEZ PLACED ON MONITOR, WILL CONTINUE TO MONITOR CLOSELY. NO IDENTIFIED REQUESTS AT THIS TIME.
--- NOTE | 2018-01-20 00:29 | NUR ---
Pt on [place] in no acute distress awaiting discharge paperwork.
[2018-01-20 00:41] VITALS: BP 119/76
--- NOTE | 2018-01-20 00:41 | NUR ---
Patient discharged with v/s stable. Written and verbal after care instructions given and explained. Patient alert, oriented and verbalized understanding of instructions. Ambulatory with steady gait. All questions addressed prior to discharge. ID band removed. Patient advised to follow up with PMD. Rx of FLEXERIL AND TRAMADOL given. Patient educated on indication of medication including possible reaction and side effects. Opportunity to ask questions provided and answered.
== END 2018-01-20 00:41 | disposition home or self-care (01) ==
LOC: MED 23:03
DX: G89.29 Other chronic pain (principal); M79.671 Pain in right foot; J45.909 Unspecified asthma, uncomplicated; Z79.899 Other long term (current) drug therapy; Z88.8 Allergy status to other drugs, medicaments and biological substances; Z91.030 Bee allergy status
CPT/HCPCS: 99283

== ENCOUNTER 2018-01-26 16:53 | Emergency (ER) | payer OTHER ==
[~2018-01-26] VITALS: Ht 170.2 cm; Wt 79.4 kg
[~2018-01-26 16:53] MED LIST changes: -BACL10TA4 PO; -CEPH250C16 PO; -SULF-59 PO
[2018-01-26 17:11] VITALS: BP 131/85
== END 2018-01-26 19:08 | disposition left against medical advice (07) ==
LOC: MED 16:53
DX: M25.511 Pain in right shoulder (principal); M54.5 Low back pain; Z53.21 Procedure and treatment not carried out due to patient leaving prior to being seen by health care provider
CPT/HCPCS: 73030; 99281

== ENCOUNTER 2018-01-26 20:35 | Emergency (ER) | payer OTHER ==
[~2018-01-26] VITALS: Ht 170.2 cm; Wt 79.4 kg
[2018-01-26 20:42] VITALS: BP 133/66
[2018-01-26] MEDS ORDERED: fentaNYL 0.05 MG/ML VIAL IM ONE (20:55)
[2018-01-26 21:23] VITALS: BP 133/66
== END 2018-01-26 21:23 | disposition home or self-care (01) ==
LOC: MED 20:35
DX: M54.5 Low back pain (principal); J45.909 Unspecified asthma, uncomplicated; Z79.899 Other long term (current) drug therapy; Z88.8 Allergy status to other drugs, medicaments and biological substances; Z91.030 Bee allergy status; Z59.0 Homelessness
CPT/HCPCS: 96372; 99283; J3010

== ENCOUNTER 2018-02-01 03:29 | Emergency (ER) | payer OTHER ==
[~2018-02-01] VITALS: Ht 170.2 cm; Wt 79.4 kg
[2018-02-01 03:39] VITALS: BP 143/56
--- NOTE | 2018-02-01 03:39 | NUR ---
TO BED # 9 AMB, REPORT GIVEN TO PARTH YEAGER.
--- NOTE | 2018-02-01 03:45 | NUR ---
PT AMBULATED TO ROOM C/O 02/20 LOW BACK PAIN, CHRONIC. STATES HE WANTS A MOTRIN PRESCRIPTION. NAD NOTED WILL CONTINUE TO MONITOR CLOSELY.
--- NOTE | 2018-02-01 04:05 | NUR ---
Dr. Lowe evaluating patient at bedside.
[2018-02-01] MEDS ORDERED: MORPHINE SULFATE 4 MG/ML SYR IM ONE (04:10)
[2018-02-01 04:50] VITALS: BP 131/69
== END 2018-02-01 04:50 | disposition home or self-care (01) ==
LOC: MED 03:29
DX: G89.29 Other chronic pain (principal); M54.9 Dorsalgia, unspecified; J45.909 Unspecified asthma, uncomplicated; Z76.5 Malingerer [conscious simulation]; Z88.8 Allergy status to other drugs, medicaments and biological substances
CPT/HCPCS: 96372; 99283; J2270

== ENCOUNTER 2018-02-11 20:39 | Emergency (ER) | payer OTHER ==
[~2018-02-11] VITALS: Ht 170.2 cm; Wt 79.4 kg
[2018-02-11 20:47] VITALS: BP 135/99
[2018-02-11 21:27] VITALS: BP 130/88
== END 2018-02-11 21:27 | disposition home or self-care (01) ==
LOC: MED 20:39
DX: M54.5 Low back pain (principal); G89.29 Other chronic pain; J45.909 Unspecified asthma, uncomplicated; Z76.0 Encounter for issue of repeat prescription; Z79.899 Other long term (current) drug therapy; Z88.8 Allergy status to other drugs, medicaments and biological substances; Z91.030 Bee allergy status
CPT/HCPCS: 99283

== ENCOUNTER 2018-04-29 02:32 | Emergency (ER) | payer SELFPAY ==
[~2018-04-29] VITALS: Ht 170.2 cm; Wt 77.1 kg
[2018-04-29 02:39] VITALS: BP 132/74
[2018-04-29] MEDS ORDERED: KETOROLAC 30 MG/ML VIAL IM ONE (02:50)
[2018-04-29 03:07] VITALS: BP 130/70
== END 2018-04-29 03:07 | disposition home or self-care (01) ==
LOC: MED 02:32
DX: M54.41 Lumbago with sciatica, right side (principal); G89.29 Other chronic pain; J45.909 Unspecified asthma, uncomplicated; Z88.8 Allergy status to other drugs, medicaments and biological substances; Z79.899 Other long term (current) drug therapy
CPT/HCPCS: 99283; J1885

== ENCOUNTER 2018-05-12 10:29 | Emergency (ER) | payer SELFPAY ==
[~2018-05-12] VITALS: Ht 170.2 cm; Wt 86.2 kg
[2018-05-12 10:35] VITALS: BP 101/60
[2018-05-12 11:38] VITALS: BP 101/60
== END 2018-05-12 11:39 | disposition home or self-care (01) ==
LOC: MED 10:29
DX: Z02.89 Encounter for other administrative examinations (principal); R07.89 Other chest pain; J45.909 Unspecified asthma, uncomplicated; Z88.8 Allergy status to other drugs, medicaments and biological substances; Z91.030 Bee allergy status; Z79.899 Other long term (current) drug therapy
CPT/HCPCS: 93005; 99283

== ENCOUNTER 2018-05-26 06:32 | Emergency (ER) | payer SELFPAY ==
[~2018-05-26] VITALS: Ht 170.2 cm; Wt 77.1 kg
[2018-05-26 06:32] VITALS: BP 141/81
--- NOTE | 2018-05-26 06:32 | NUR ---
PATIENT AMBULATED TO ER BED 3.
--- NOTE | 2018-05-26 06:38 | NUR ---
Patient ambulated to bed 3. RN evaluating patient at bedside.
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
[2018-05-26] MEDS ORDERED: traMADol 50 MG TAB PO ONE (07:20)
[2018-05-26] MEDS ORDERED: traMADol 50 MG TAB ONE (07:39)
--- NOTE | 2018-05-26 07:44 | NUR ---
MEDICATED FOR PAIN
[2018-05-26 08:15] VITALS: BP 129/78
== END 2018-05-26 08:15 | disposition home or self-care (01) ==
LOC: MED 06:32
DX: S90.812A Abrasion, left foot, initial encounter (principal); G89.29 Other chronic pain; M54.9 Dorsalgia, unspecified; J45.909 Unspecified asthma, uncomplicated; I10 Essential (primary) hypertension; Z88.8 Allergy status to other drugs, medicaments and biological substances; Z79.899 Other long term (current) drug therapy; V19.9XXA Pedal cyclist (driver) (passenger) injured in unspecified traffic accident, initial encounter; Y93.89 Activity, other specified; Y92.89 Other specified places as the place of occurrence of the external cause; Y99.8 Other external cause status
CPT/HCPCS: 99283

== ENCOUNTER 2018-06-08 06:58 | Emergency (ER) | payer OTHER ==
[~2018-06-08] VITALS: Ht 170.2 cm; Wt 68.2 kg
[~2018-06-08 06:58] MED LIST changes: -ACET-2858 PO; +HYDR-5092 PO
[2018-06-08 07:18] VITALS: BP 125/79
[2018-06-08] MEDS ORDERED: traMADol 50 MG TAB PO ONE (07:55)
[2018-06-08] MEDS ORDERED: KETOROLAC 60 MG/2 ML VIAL IM ONE (07:55)
[2018-06-08 08:22] VITALS: BP 125/79
== END 2018-06-08 08:22 | disposition home or self-care (01) ==
LOC: MED 06:58
DX: M25.562 Pain in left knee (principal); M25.561 Pain in right knee; M25.571 Pain in right ankle and joints of right foot; M25.572 Pain in left ankle and joints of left foot; M54.5 Low back pain; M35.3 Polymyalgia rheumatica; J45.909 Unspecified asthma, uncomplicated; I10 Essential (primary) hypertension; F17.210 Nicotine dependence, cigarettes, uncomplicated; Z88.8 Allergy status to other drugs, medicaments and biological substances; Z91.030 Bee allergy status
CPT/HCPCS: 96372; 99283; J1885

== ENCOUNTER 2018-09-04 07:14 | Emergency (ER) | payer OTHER ==
[~2018-09-04] VITALS: Ht 170.2 cm; Wt 77.6 kg
[2018-09-04 07:20] VITALS: BP 104/60
--- NOTE | 2018-09-04 07:27 | NUR ---
PT TAKEN TO BED 4
--- NOTE | 2018-09-04 07:35 | NUR ---
53/M HOMELESS bib self with c/o 7/10 bl lateral leg pain x midnight. Patient denies any recent injury or fall. Patient with steady gait. hx--HTN, Asthma, Renal DZ, Chronic Back Pain. rx--NORCO. PATIENT POSITIONED FOR COMFORT; LIL LEGS ELEVATED; BEDRAILS UP X2; BED DOWN. LOIS PABLO MADE AWARE OF PT STATUS. Addendum: 09/04/18 at 0748 by [facility] PT ON PROBATION; ON GPS MONITOR RIGHT LOWER LEG.
[2018-09-04] MEDS ORDERED: KETOROLAC 60 MG/2 ML VIAL IM ONE (08:25)
--- NOTE | 2018-09-04 09:16 | NUR ---
Patient given written and verbal discharge instructions and verbalizes understanding. Given copies of tests performed during visit. Patient is awake, alert and oriented. Ambulatory with steady gait. Refuses offer of intermediate placement. Given list of available shelters in surrounding areas. PROVIDED FOOD, HOMELESS RESOURSES DOCUMENT, CLOTHES.
[2018-09-04 09:19] VITALS: BP 120/61
== END 2018-09-04 09:16 | disposition home or self-care (01) ==
LOC: MED 07:14
DX: G89.29 Other chronic pain (principal); M54.9 Dorsalgia, unspecified; M41.86 Other forms of scoliosis, lumbar region; F17.210 Nicotine dependence, cigarettes, uncomplicated; J45.909 Unspecified asthma, uncomplicated; I10 Essential (primary) hypertension; N28.9 Disorder of kidney and ureter, unspecified; Z88.8 Allergy status to other drugs, medicaments and biological substances; Z91.030 Bee allergy status
CPT/HCPCS: 96372; 99283; J1885

== ENCOUNTER 2018-09-25 15:56 | Emergency (ER) | payer OTHER ==
[~2018-09-25] VITALS: Ht 170.2 cm; Wt 72.6 kg
--- NOTE | 2018-09-25 15:58 | NUR ---
SHANNON LEE, CURRENTLY AWAITING BED
[2018-09-25 16:09] VITALS: BP 122/86
--- NOTE | 2018-09-25 16:25 | NUR ---
53/M PRESENTS TO ED WITH C/O LEFT LEG PAIN AFTER HE FELL OFF HIS BACK X1 DAY AGO. PT STATES PAIN IS CONSTANT THROBBING PAIN 8/10, REPORTS WORSE PAIN HE HAS EVER FELT, UNABLE TO TAKE MORE THAN 5 STEPS AT THIS TIME. PATIENT STATES HE HAS A HISTORY OR NEUROPATHY. DENIES N/V/D; SKIN IS APPROPRIATE FOR ETHNICITY/WARM/DRY; AAOX4; LUNGS CLEAR BL; HR EVEN AND REGULAR; PT DENIES ANY FEVER, CP, SOB, OR COUGH AT THIS TIME; ER PA MADE AWARE OF PT STATUS, WILL CONTINUE TO MONITOR.
[2018-09-25] MEDS ORDERED: KETOROLAC 30 MG/ML VIAL IM ONE (16:30)
[2018-09-25] MEDS ORDERED: ACETAMINOPHEN 325 MG TAB PO ONE (16:35)
--- NOTE | 2018-09-25 16:35 | NUR ---
PT TAKEN TO XRAY VIA WHEELCHAIR
--- NOTE | 2018-09-25 16:36 | NUR ---
PATIENT TAKEN TO X RAY VIA GURANIKA, ACCOMPANIED BY RAD. TECH
[2018-09-25] MEDS ORDERED: KETOROLAC 60 MG/2 ML VIAL IM ONE (17:40)
--- NOTE | 2018-09-25 17:41 | NUR ---
PT SITTING IN CHAIR, W/ VSS. NO NEW COMPLAINTS, PAIN 01/21 WILL CONTINUE TO MONITOR.
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
[2018-09-25 18:24] VITALS: BP 115/79
== END 2018-09-25 18:24 | disposition home or self-care (01) ==
LOC: MED 15:56
DX: M79.652 Pain in left thigh (principal); R25.2 Cramp and spasm; J45.909 Unspecified asthma, uncomplicated; I10 Essential (primary) hypertension; N28.9 Disorder of kidney and ureter, unspecified; Z88.8 Allergy status to other drugs, medicaments and biological substances; Z91.030 Bee allergy status; Z79.891 Long term (current) use of opiate analgesic; V29.9XXA Motorcycle rider (driver) (passenger) injured in unspecified traffic accident, initial encounter; Y93.55 Activity, bike riding; Y92.89 Other specified places as the place of occurrence of the external cause; Y99.8 Other external cause status
CPT/HCPCS: 73552; 96372; 99283; J1885

== ENCOUNTER 2018-09-28 02:15 | Emergency (ER) | payer OTHER ==
[~2018-09-28] VITALS: Ht 160 cm; Wt 68.0 kg
--- NOTE | 2018-09-28 02:18 | NUR ---
PT C/O BILAT LEG PAIN WORSENING OVER PAST FEW DAYS 05/23, STATES HE WAS SEEN HERE 3 DAYS AGO AND DISCHARGED HOME. ON EXAM LEGS HAVE NO EVIDENCE OF SWELLING, BRUISING. DENIES INJURY.
[2018-09-28 02:20] VITALS: BP 129/52
--- NOTE | 2018-09-28 02:20 | NUR ---
pt ambulated to bed 8 for bedside triage
[2018-09-28] MEDS ORDERED: ACETAMINOPHEN 325 MG TAB PO ONE (02:25)
[2018-09-28 02:30] VITALS: BP 128/75
--- NOTE | 2018-09-28 02:30 | NUR ---
Patient discharged with v/s stable. Written and verbal after care instructions given and explained. Patient verbalized understanding. Ambulatory with steady gait. All questions addressed prior to discharge. Advised to follow up with PMD. HOMELESS PACKET GIVEN AT THIS TIME, PATIENT AGREED TO FIND OWN TRANSPORTATION AND HOUSING.
== END 2018-09-28 02:30 | disposition home or self-care (01) ==
LOC: MED 02:15
DX: M79.671 Pain in right foot (principal); M79.672 Pain in left foot; Z88.8 Allergy status to other drugs, medicaments and biological substances; Z79.899 Other long term (current) drug therapy
CPT/HCPCS: 99282

== ENCOUNTER 2018-10-07 08:48 | Emergency (ER) | payer OTHER ==
[~2018-10-07] VITALS: Ht 170.2 cm; Wt 72.6 kg
[2018-10-07 09:03] VITALS: BP 114/91
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
[2018-10-07] MEDS ORDERED: traMADol 50 MG TAB PO ONE (09:45)
[2018-10-07] MEDS ORDERED: KETOROLAC 60 MG/2 ML VIAL IM ONE (09:45)
--- NOTE | 2018-10-07 09:52 | NUR ---
X RAY AT BEDSIDE.
--- NOTE | 2018-10-07 11:56 | NUR ---
PLACED A POSTERIOR LONG ARM SPLINT ON PT'S RIGHT ARM. WRAPPED THE FIBERGLASS USING TWO ARJUN WRAPS, AND IMMOBILIZED RIGHT ARM USING A SLING.
[2018-10-07 12:08] VITALS: BP 139/95
--- NOTE | 2018-10-07 12:08 | NUR ---
Patient discharged with v/s stable. Written and verbal after care instructions given and explained. Patient alert, oriented and verbalized understanding of instructions. Ambulatory with steady gait. All questions addressed prior to discharge. ID band removed. Patient advised to follow up with PMD. Rx of Tramadol and Naproxen given. Patient educated on indication of medication including possible reaction and side effects. Opportunity to ask questions provided and answered.
== END 2018-10-07 12:08 | disposition home or self-care (01) ==
LOC: MED 08:48
DX: S52.134A Nondisplaced fracture of neck of right radius, initial encounter for closed fracture (principal); S50.11XA Contusion of right forearm, initial encounter; S60.211A Contusion of right wrist, initial encounter; I10 Essential (primary) hypertension; F17.200 Nicotine dependence, unspecified, uncomplicated; Z79.899 Other long term (current) drug therapy; Z88.6 Allergy status to analgesic agent; Z88.8 Allergy status to other drugs, medicaments and biological substances; V19.9XXA Pedal cyclist (driver) (passenger) injured in unspecified traffic accident, initial encounter; Y93.89 Activity, other specified; Y92.89 Other specified places as the place of occurrence of the external cause; Y99.8 Other external cause status
CPT/HCPCS: 29125; 73090; 73130; 96372; 99283; J1885; Q0092

== ENCOUNTER 2019-07-13 10:33 | Emergency (ER) | payer OTHER ==
[~2019-07-13] VITALS: Ht 167.6 cm; Wt 72.6 kg
--- NOTE | 2019-07-13 10:38 | NUR ---
PT AMBULATED TO ER BED 07
[2019-07-13 10:44] VITALS: BP 157/79
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
--- NOTE | 2019-07-13 12:30 | NUR ---
Patient taken to CT.
--- NOTE | 2019-07-13 12:46 | NUR ---
BACK FORM CT.
--- NOTE | 2019-07-13 13:54 | NUR ---
ER MD MADE AWARE OF PATIENT C/O HEADACHE. PATIENT EVALUATED BY ER MD. MADE AWARE OF PLAN FOR TRANS FOR HIGHER LEVEL OF CARE. PT VERBALIZED UNDERSTANDING.
--- NOTE | 2019-07-13 14:06 | NUR ---
PATIENT ELOPED FROM FACILITY. DISCHARGE INSTRUCTIONS NOT GIVEN TO PATIENT. DR. VALLES NOTIFIED.
== END 2019-07-13 14:06 | disposition left against medical advice (07) ==
LOC: MED 10:33
DX: S02.40EA Zygomatic fracture, right side, initial encounter for closed fracture (principal); S02.40CA Maxillary fracture, right side, initial encounter for closed fracture; S02.2XXA Fracture of nasal bones, initial encounter for closed fracture; Z79.891 Long term (current) use of opiate analgesic; Z91.030 Bee allergy status; Z88.8 Allergy status to other drugs, medicaments and biological substances; V29.9XXA Motorcycle rider (driver) (passenger) injured in unspecified traffic accident, initial encounter; Y93.89 Activity, other specified; Y92.410 Unspecified street and highway as the place of occurrence of the external cause; Y99.8 Other external cause status
CPT/HCPCS: 70450; 70486; 99284

== ENCOUNTER 2021-01-06 06:14 | Emergency (ER) | payer OTHER ==
[~2021-01-06] VITALS: Ht 170.2 cm; Wt 77.1 kg
[2021-01-06 06:18] VITALS: BP 130/73
[2021-01-06] MEDS ORDERED: DOXY100T9 PO (07:24)
[2021-01-06 07:30] VITALS: BP 130/73
== END 2021-01-06 07:30 | disposition home or self-care (01) ==
LOC: MED 06:14
DX: L02.211 Cutaneous abscess of abdominal wall (principal); L02.411 Cutaneous abscess of right axilla; F17.210 Nicotine dependence, cigarettes, uncomplicated; Z88.8 Allergy status to other drugs, medicaments and biological substances; Z79.899 Other long term (current) drug therapy; Z71.6 Tobacco abuse counseling
CPT/HCPCS: 99283

== ENCOUNTER 2021-01-23 22:18 | Emergency (ER) | payer OTHER ==
[~2021-01-23] VITALS: Ht 170.2 cm; Wt 73.5 kg
[~2021-01-23 22:18] MED LIST changes: +DOXY100T9 PO
[2021-01-23 22:37] VITALS: BP 125/91
--- NOTE | 2021-01-23 22:42 | NUR ---
Pt ambulated to ER [facility] w/ steady gait. VSS. No acute distress noted.
--- NOTE | 2021-01-23 23:28 | NUR ---
PT TAKEN TO BED 1
--- NOTE | 2021-01-23 23:37 | NUR ---
c/o nausea, headache, & weakness x 1 day. decrease in appetite. denied taking medications to relieve pain. denies vomiting. AAOx4. VSS. pmh: chronic lower back pain, hep c ax: amitriptylin , naproxen
[2021-01-24] MEDS ORDERED: ACETAMINOPHEN EXTRA STRENGTH 500 MG TAB PO ONE (00:25)
[2021-01-24] MEDS ORDERED: NACL 0.9% 1,000 ML IV ONE (00:25)
[2021-01-24] MEDS ORDERED: ONDANSETRON 4 MG/2 ML VIAL IVP ONE (00:25)
--- NOTE | 2021-01-24 00:44 | NUR ---
collected blood and sent to lab. received by stanley mcneal
[2021-01-24 01:00] LABS: BASOPHILS % (AUTO) 0.3 % (0.0-2.0); EOSINOPHILS # (AUTO) 0.1 K/uL (0-0.4); EOSINOPHILS % (AUTO) 2.2 % (0.0-4.0); HEMATOCRIT 39.3 % (36-52); HEMOGLOBIN 13.3 g/dL (12.0-18.0); LYMPHOCYTES # (AUTO) 1.1 K/uL (2.0-11.5); LYMPHOCYTES % (AUTO) 18.6 % (20.5-51.1); MEAN CORPUSCULAR HEMOGLOBIN 31 pg (27-31); MEAN CORPUSCULAR HGB CONC 34 g/dL (33-37); MEAN CORPUSCULAR VOLUME 90.5 fL (80-94); MONOCYTES # (AUTO) 0.4 K/uL (0.8-1.0); MONOCYTES % (AUTO) 7.2 % (1.7-9.3); NEUTROPHILS # (AUTO) 4.3 K/uL (1.8-7.7); NEUTROPHILS % (AUTO) 71.7 % (42.2-75.2); PLATELET COUNT (AUTO) 256 K/uL (140-450); RED BLOOD CELL COUNT(AUTO) 4.35 MIL/uL (4.20-6.10); RED CELL DISTRIBUTION WIDTH 14.5 % (11.6-13.7)
[2021-01-24 01:19] LABS: ALBUMIN 3.3 g/dL (3.4-5.0); ANION GAP 16.8 (8-16); CARBON DIOXIDE 23.9 mmol/L (21-32); CREATININE 0.8 mg/dL (0.6-1.3); POTASSIUM 3.7 mmol/L (3.5-5.1); TOTAL BILIRUBIN 0.7 mg/dL (0.0-1.0)
--- NOTE | 2021-01-24 01:25 | NUR ---
Patient ambulated to the bathroom for urine collection.
--- NOTE | 2021-01-24 01:28 | NUR ---
reconnected patient back on the monitor. Safety measures in place and will continue to monitor patient.
[2021-01-24] MEDS ORDERED: ONDA-24 SL (01:53)
--- NOTE | 2021-01-24 02:33 | NUR ---
Patient discharged with v/s stable. Written and verbal after care instructions given and explained. Patient alert, oriented and verbalized understanding of instructions. Ambulatory with steady gait. All questions addressed prior to discharge. ID band removed. Patient advised to follow up with PMD. Rx of Zofran ODT given. Patient educated on indication of medication including possible reaction and side effects. Opportunity to ask questions provided and answered.
[2021-01-24 02:39] VITALS: BP 109/73
== END 2021-01-24 02:33 | disposition home or self-care (01) ==
LOC: MED 22:18
DX: R11.0 Nausea (principal); M54.5 Low back pain; F17.290 Nicotine dependence, other tobacco product, uncomplicated; F12.20 Cannabis dependence, uncomplicated; Z88.8 Allergy status to other drugs, medicaments and biological substances; Z79.899 Other long term (current) drug therapy
CPT/HCPCS: 36415; 80053; 84484; 85025; 93005; 96361; 96374; 99285; J2405; J7030

== ENCOUNTER 2021-01-29 02:14 | Emergency (ER) | payer OTHER ==
[~2021-01-29] VITALS: Ht 162.6 cm; Wt 72.1 kg
[~2021-01-29 02:14] MED LIST changes: +ONDA-24 SL
[2021-01-29 02:17] VITALS: BP 141/69
--- NOTE | 2021-01-29 02:19 | NUR ---
MERCEDEZ LILLY officer Lalo #[id number] to [facility]
--- NOTE | 2021-01-29 03:52 | NUR ---
Dr. Curiel examining patient.
[2021-01-29] MEDS ORDERED: ACETAMINOPHEN EXTRA STRENGTH 500 MG TAB PO ONE (03:55)
--- NOTE | 2021-01-29 04:01 | NUR ---
PT TAKEN TO BED 11
--- NOTE | 2021-01-29 04:29 | NUR ---
PT TAKEN TO XRAY
--- NOTE | 2021-01-29 04:37 | NUR ---
Nigel carmona in [facility] - 01/29/21 at 0438 by NIKKI PT RETURN FROM CT
--- NOTE | 2021-01-29 04:38 | NUR ---
PT RETURN FROM XRAY
[2021-01-29 06:41] VITALS: BP 141/69
--- NOTE | 2021-01-29 06:41 | NUR ---
PT. D/C IN CUSTODY OF PD [employer]. MEDICALLY CLEARED TO BOOK.
== END 2021-01-29 06:41 ==
LOC: MED 02:14
DX: M54.5 Low back pain (principal); Z02.89 Encounter for other administrative examinations; Z88.1 Allergy status to other antibiotic agents; Z88.8 Allergy status to other drugs, medicaments and biological substances; Z79.899 Other long term (current) drug therapy; V09.9XXA Pedestrian injured in unspecified transport accident, initial encounter; Y93.89 Activity, other specified; Y92.89 Other specified places as the place of occurrence of the external cause; Y99.8 Other external cause status
CPT/HCPCS: 72110; 99283

== ENCOUNTER 2021-03-28 04:10 | Emergency (ER) | payer OTHER ==
[~2021-03-28] VITALS: Ht 162.6 cm; Wt 77.1 kg
[2021-03-28 04:30] VITALS: BP 105/70
--- NOTE | 2021-03-28 04:30 | NUR ---
to bed ambulatory
[2021-03-28] MEDS ORDERED: CYCLOBENZAPRINE 10 MG TAB PO ONE (04:45)
--- NOTE | 2021-03-28 04:45 | NUR ---
ERMD AT BEDSIDE EXAMINING PT.
--- NOTE | 2021-03-28 04:45 | NUR ---
56 YO M BIB SELF WITH C/C OF MUSCLE SPASMS TO R LEG (FROM HIP TO KNEE), THROBBING SHARP PAIN 8/10. STATED PAIN COMES AND GOES X25 YRS. PT ALSO REPORTED ABCESS TO R BUTTOCK X1DAY, PAIN 6/. HX: CHRONIC LOWER BACK PAIN RX: DENIES ALLERG: SEE ALLERGS
[2021-03-28] MEDS ORDERED: CEPH-588 PO (04:47)
[2021-03-28] MEDS ORDERED: CYCL-711 PO (04:47)
[2021-03-28 05:12] VITALS: BP 105/70
--- NOTE | 2021-03-28 05:12 | NUR ---
Patient discharged with v/s stable. Written and verbal after care instructions given and explained. Patient alert, oriented and verbalized understanding of instructions. Ambulatory with steady gait. All questions addressed prior to discharge. ID band removed. Patient advised to follow up with PMD. Rx of FLEXERIL AND KEFLEX given. Patient educated on indication of medication including possible reaction and side effects. Opportunity to ask questions provided and answered.
== END 2021-03-28 05:12 | disposition home or self-care (01) ==
LOC: MED 04:10
DX: L02.31 Cutaneous abscess of buttock (principal); R25.2 Cramp and spasm; Z88.1 Allergy status to other antibiotic agents; Z88.8 Allergy status to other drugs, medicaments and biological substances; Z79.899 Other long term (current) drug therapy
CPT/HCPCS: 99283

== ENCOUNTER 2021-04-05 00:18 | Emergency (ER) | payer OTHER ==
[~2021-04-05] VITALS: Ht 170.2 cm; Wt 77.1 kg
[~2021-04-05 00:18] MED LIST changes: +CEPH-588 PO; +CYCL-711 PO
[2021-04-05 00:25] VITALS: BP 107/74
== END 2021-04-05 01:18 | disposition left against medical advice (07) ==
LOC: MED 00:18
DX: L02.512 Cutaneous abscess of left hand (principal); Z79.899 Other long term (current) drug therapy; Z88.8 Allergy status to other drugs, medicaments and biological substances
CPT/HCPCS: 99281

== ENCOUNTER 2021-04-07 03:05 | Emergency (ER) | payer OTHER ==
[~2021-04-07] VITALS: Ht 170.2 cm; Wt 77.1 kg
[2021-04-07 03:08] VITALS: BP 116/69
[2021-04-07] MEDS ORDERED: DOXYCYCLINE 100 MG CAP PO SCH (03:40)
[2021-04-07] MEDS ORDERED: cephALEXin 500 MG CAP PO ONE (03:40)
[2021-04-07] MEDS ORDERED: CEPH-588 PO ×2 (03:49→04:06)
[2021-04-07] MEDS ORDERED: DOXY-487 PO ×2 (03:50→04:06)
[2021-04-07 04:02] VITALS: BP 116/69
== END 2021-04-07 04:02 | disposition home or self-care (01) ==
LOC: MED 03:05
DX: L02.512 Cutaneous abscess of left hand (principal); L03.114 Cellulitis of left upper limb; Z79.899 Other long term (current) drug therapy; Z88.8 Allergy status to other drugs, medicaments and biological substances
CPT/HCPCS: 99283

== ENCOUNTER 2021-06-14 01:34 | Emergency (ER) | payer OTHER ==
[~2021-06-14] VITALS: Ht 167.6 cm; Wt 81.6 kg
[~2021-06-14 01:34] MED LIST changes: +DOXY-487 PO; +ONDA-188 SL; -ONDA-24 SL
[2021-06-14 01:42] VITALS: BP 106/63
--- NOTE | 2021-06-14 01:48 | NUR ---
PATIENT TO BED 11 AMBULATORY
--- NOTE | 2021-06-14 02:06 | NUR ---
Dr. Curiel examining patient.
[2021-06-14] MEDS ORDERED: SULF-59 PO (02:20)
[2021-06-14] MEDS ORDERED: IBUP-2218 PO (02:20)
[2021-06-14] MEDS ORDERED: CYCL-711 PO (02:20)
[2021-06-14 02:38] VITALS: BP 106/63
[2021-06-14] MEDS: HYDROcodone/APAP 5/325 MG 1 TAB TAB PO ONE (02:38)
[2021-06-14] MEDS: SULFAMETH/TRIMETH DS 800/160MG 1 TAB PO ONE (02:38)
--- NOTE | 2021-06-14 02:38 | NUR ---
Patient discharged with v/s stable. Written and verbal after care instructions given and explained. Patient verbalized understanding. Ambulatory with steady gait. All questions addressed prior to discharge. Advised to follow up with PMD.
== END 2021-06-14 02:38 | disposition home or self-care (01) ==
LOC: MED 01:34
DX: L02.31 Cutaneous abscess of buttock (principal); M54.50 Low back pain, unspecified; G89.29 Other chronic pain; Z79.899 Other long term (current) drug therapy; Z79.2 Long term (current) use of antibiotics; Z79.1 Long term (current) use of non-steroidal anti-inflammatories (NSAID); Z79.891 Long term (current) use of opiate analgesic; Z88.8 Allergy status to other drugs, medicaments and biological substances; Z88.6 Allergy status to analgesic agent; Z91.030 Bee allergy status
CPT/HCPCS: 99283

== ENCOUNTER 2021-07-03 17:46 | Emergency (ER) | payer OTHER ==
[~2021-07-03] VITALS: Ht 170.2 cm; Wt 77.1 kg
[~2021-07-03 17:46] MED LIST changes: +IBUP-2218 PO; +SULF-59 PO
[2021-07-03 17:52] VITALS: BP 132/82
[2021-07-03] MEDS ORDERED: NAPR-54 PO (18:04)
[2021-07-03] MEDS ORDERED: CYCL-711 PO (18:04)
[2021-07-03] MEDS ORDERED: CEPH-588 PO (18:04)
[2021-07-03 18:14] VITALS: BP 132/82
== END 2021-07-03 18:14 | disposition home or self-care (01) ==
LOC: MED 17:46
DX: L02.31 Cutaneous abscess of buttock (principal); Z79.899 Other long term (current) drug therapy; Z79.1 Long term (current) use of non-steroidal anti-inflammatories (NSAID); Z79.2 Long term (current) use of antibiotics; Z88.8 Allergy status to other drugs, medicaments and biological substances; Z88.6 Allergy status to analgesic agent; Z91.030 Bee allergy status
CPT/HCPCS: 99283

== ENCOUNTER 2021-08-18 22:28 | Emergency (ER) | payer OTHER ==
[~2021-08-18] VITALS: Ht 170.2 cm; Wt 79.4 kg
[~2021-08-18 22:28] MED LIST changes: +NAPR-54 PO
[2021-08-18 22:51] VITALS: BP 140/71
[2021-08-18] MEDS ORDERED: DOXY-487 PO (23:03)
[2021-08-18 23:10] VITALS: BP 140/71
== END 2021-08-18 23:10 | disposition home or self-care (01) ==
LOC: MED 22:28
DX: L03.115 Cellulitis of right lower limb (principal); Z88.5 Allergy status to narcotic agent; Z88.8 Allergy status to other drugs, medicaments and biological substances
CPT/HCPCS: 99283

== ENCOUNTER 2021-08-31 04:19 | Emergency (ER) | payer OTHER ==
[~2021-08-31] VITALS: Ht 157.5 cm; Wt 78.0 kg
--- NOTE | 2021-08-31 05:10 | NUR ---
CALLED TO TRIAGE NO ANSWER.
--- NOTE | 2021-08-31 05:15 | NUR ---
CALLED TO TRIAGE NO ANSWER.
[2021-08-31 05:56] VITALS: BP 141/86
--- NOTE | 2021-08-31 06:00 | NUR ---
PT IN LOBBY
[2021-08-31] MEDS ORDERED: TRAM50TA3 PO (06:28)
[2021-08-31] MEDS ORDERED: IBUP-2213 PO (06:28)
[2021-08-31] MEDS ORDERED: PRED20TA5 PO (06:28)
[2021-08-31 06:48] VITALS: BP 141/86
--- NOTE | 2021-08-31 06:48 | NUR ---
Patient discharged with v/s stable. Written and verbal after care instructions given and explained. Patient alert, oriented and verbalized understanding of instructions. Ambulatory with steady gait. All questions addressed prior to discharge. ID band removed. Patient advised to follow up with PMD. Rx of IBUPROFEN, PREDNISONE, TRAMADOL given. Patient educated on indication of medication including possible reaction and side effects. Opportunity to ask questions provided and answered.
== END 2021-08-31 06:48 | disposition home or self-care (01) ==
LOC: MED 04:19
DX: J02.9 Acute pharyngitis, unspecified (principal); F17.210 Nicotine dependence, cigarettes, uncomplicated; F12.10 Cannabis abuse, uncomplicated; Z88.8 Allergy status to other drugs, medicaments and biological substances
CPT/HCPCS: 99283

== ENCOUNTER 2021-10-30 05:34 | Emergency (ER) | payer OTHER ==
[~2021-10-30] VITALS: Ht 170.2 cm; Wt 77.1 kg
[~2021-10-30 05:34] MED LIST changes: +IBUP-2213 PO; +PRED20TA5 PO; +TRAM50TA3 PO
[2021-10-30 05:35] VITALS: BP 134/78
[2021-10-30] MEDS ORDERED: SULF-59 PO (06:41)
[2021-10-30] MEDS ORDERED: CEPH-588 PO (06:41)
[2021-10-30] MEDS: BACITRACIN OINT 500 UNITS/GM PKT TP ONE (06:47)
[2021-10-30] MEDS: KETOROLAC 15 MG/ML VIAL IM ONE (07:14)
--- NOTE | 2021-10-30 07:15 | NUR ---
WOUND CARE DONE AND DRESSING WITH kERLIX APPLIED.
[2021-10-30 07:16] VITALS: BP 119/69
--- NOTE | 2021-10-30 07:18 | NUR ---
Patient discharged with v/s stable. Written and verbal after care instructions given and explained. Patient alert, oriented and verbalized understanding of instructions. Ambulatory with steady gait. All questions addressed prior to discharge. ID band removed. Patient advised to follow up with PMD. Rx of KEFLEX AND BACTRIM given. Patient educated on indication of medication including possible reaction and side effects. Opportunity to ask questions provided and answered. PT DISCHARGE WITH DRESSING ON LEFT THIGH CLEAN AND INTACT.
== END 2021-10-30 07:16 | disposition home or self-care (01) ==
LOC: MED 05:34
DX: L03.116 Cellulitis of left lower limb (principal); F17.200 Nicotine dependence, unspecified, uncomplicated; Z86.19 Personal history of other infectious and parasitic diseases; Z88.1 Allergy status to other antibiotic agents; Z88.8 Allergy status to other drugs, medicaments and biological substances; Z79.899 Other long term (current) drug therapy; Z98.890 Other specified postprocedural states
CPT/HCPCS: 99283

== ENCOUNTER 2021-11-01 01:45 | Emergency (ER) | payer OTHER ==
[~2021-11-01] VITALS: Ht 170.2 cm; Wt 77.1 kg
[2021-11-01 01:51] VITALS: BP 112/69
--- NOTE | 2021-11-01 02:05 | NUR ---
Patient came to ER. C/O spider bite x 4 days. Patient reported, spider bite x 3-4 days ago. PMHx: Chronic back pain and Hep C. Sx: left foot Sx.
--- NOTE | 2021-11-01 02:06 | NUR ---
Dr. Curiel at triage to exam patient.
[2021-11-01] MEDS ORDERED: SULFAMETH/TRIMETH DS 800/160MG 1 TAB PO ONE (02:15)
[2021-11-01] MEDS ORDERED: cephALEXin 500 MG CAP PO ONE (02:15)
[2021-11-01] MEDS ORDERED: BACITRACIN OINT 500 UNITS/GM PKT TP ONE (02:22)
[2021-11-01 02:37] VITALS: BP 112/69
--- NOTE | 2021-11-01 02:37 | NUR ---
Patient discharged with v/s stable. Written and verbal after care instructions given and explained. Patient alert, oriented and verbalized understanding of instructions. Ambulatory with steady gait. All questions addressed prior to discharge. ID band removed. Patient advised to follow up with PMD. Rx of Bactrim and Keflex given. Patient educated on indication of medication including possible reaction and side effects. Opportunity to ask questions provided and answered.
== END 2021-11-01 02:37 | disposition home or self-care (01) ==
LOC: MED 01:45
DX: L02.416 Cutaneous abscess of left lower limb (principal); Z79.899 Other long term (current) drug therapy; Z88.8 Allergy status to other drugs, medicaments and biological substances
CPT/HCPCS: 99283

== ENCOUNTER 2021-11-04 17:59 | Emergency (ER) | payer OTHER ==
[~2021-11-04] VITALS: Ht 170.2 cm; Wt 77.6 kg
[2021-11-04 18:00] VITALS: BP 123/70
--- NOTE | 2021-11-04 18:07 | NUR ---
56Y MALE BIB SELF DUE TO NEEDING MED REFILL. PER PT HE WAS GIVEN KEFLEX 500MG PO AND BACTRIM PO. PMH: CHRONIC BACK PAIN, HEP C ALLERGIES: SEE LIST
--- NOTE | 2021-11-04 18:15 | NUR ---
PT PROVIDED WITH FOOD, BUS PASS, AND HOMELESS RESOURCE PACKET
[2021-11-04] MEDS ORDERED: BACITRACIN OINT 500 UNITS/GM PKT TP ONE (18:20)
[2021-11-04] MEDS ORDERED: cephALEXin 500 MG CAP PO ONE (18:20)
[2021-11-04] MEDS ORDERED: SULFAMETH/TRIMETH DS 800/160MG 1 TAB PO ONE (18:20)
[2021-11-04] MEDS ORDERED: SULF-59 PO (18:28)
[2021-11-04] MEDS ORDERED: CEPH-588 PO (18:28)
[2021-11-04 18:41] VITALS: BP 123/70
--- NOTE | 2021-11-04 18:42 | NUR ---
Patient discharged with v/s stable. Written and verbal after care instructions given and explained. Patient alert, oriented and verbalized understanding of instructions. Ambulatory with steady gait. All questions addressed prior to discharge. ID band removed. Patient advised to follow up with PMD. Rx of KEFLEX AND BACTRIM given. Patient educated on indication of medication including possible reaction and side effects. Opportunity to ask questions provided and answered.
== END 2021-11-04 18:41 | disposition home or self-care (01) ==
LOC: MED 17:59
DX: L03.116 Cellulitis of left lower limb (principal); Z76.0 Encounter for issue of repeat prescription; Z79.899 Other long term (current) drug therapy; Z88.1 Allergy status to other antibiotic agents; Z88.8 Allergy status to other drugs, medicaments and biological substances; Z86.19 Personal history of other infectious and parasitic diseases
CPT/HCPCS: 99281; 99284

== ENCOUNTER 2022-01-04 15:40 | Emergency (ER) | payer OTHER, MEDICAID ==
[~2022-01-04] VITALS: Ht 167.6 cm; Wt 77.1 kg
--- NOTE | 2022-01-04 15:41 | NUR ---
SHANNON IBARRA TO CHAIR Andrade
[2022-01-04 15:45] VITALS: BP 114/81
--- NOTE | 2022-01-04 15:49 | NUR ---
56 Y/O MALE ACCOMPANIED BY DONALD IBARRA PREBOOK. PT C/O RIGHT RIB PAIN AND HEADACHE 02/20. DENIES SOB. DENIES CHEST PAIN. PMH: ASTHMA, CHRONIC BACK PAIN RX: NORCO 10MG, AND FLEXERIL ALLERGEIES: AMITRIPTYLINE, METHOCARBAMOL, AND NAPROXEN
[2022-01-04] MEDS ORDERED: KETOROLAC 60 MG/2 ML VIAL IM ONE (15:55)
[2022-01-04] MEDS ORDERED: CYCL-711 PO (16:09)
--- NOTE | 2022-01-04 16:10 | NUR ---
im meds given-nadr at this time
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
[2022-01-04 16:22] VITALS: BP 110/75
== END 2022-01-04 16:13 ==
LOC: MED 15:40
DX: S20.20XA Contusion of thorax, unspecified, initial encounter (principal); Z88.1 Allergy status to other antibiotic agents; Z88.8 Allergy status to other drugs, medicaments and biological substances; Z79.899 Other long term (current) drug therapy; Z98.890 Other specified postprocedural states; V87.8XXA Person injured in other specified noncollision transport accidents involving motor vehicle (traffic), initial encounter; Y93.89 Activity, other specified; Y92.89 Other specified places as the place of occurrence of the external cause; Y99.8 Other external cause status
CPT/HCPCS: 99283; J1885; 81025

== ENCOUNTER 2022-03-16 08:04 | Emergency (ER) | payer MEDICAID, OTHER ==
[~2022-03-16] VITALS: Ht 167.6 cm; Wt 79.4 kg
--- NOTE | 2022-03-16 08:04 | NUR ---
SHANNON IBARRA TO CHAIR Armijo
[2022-03-16 08:09] VITALS: BP 110/68
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
[2022-03-16 08:35] VITALS: BP 110/68
--- NOTE | 2022-03-16 08:35 | NUR ---
PATIENT [facility] DE[employer]. PATIENT EXAMINED BY DR. CASTANEDA. PATIENT MEDICALLY CLEARED AND RELEASED IN CUSTODY IN STABLE CONDITION. ORIGINAL PRE-BOOK FORM GIVEN TO OFFICER BALAJI.
== END 2022-03-16 08:35 ==
LOC: MED 08:04
DX: R10.9 Unspecified abdominal pain (principal); J45.909 Unspecified asthma, uncomplicated; Z02.89 Encounter for other administrative examinations; Z88.1 Allergy status to other antibiotic agents; Z88.8 Allergy status to other drugs, medicaments and biological substances; Z79.899 Other long term (current) drug therapy; Z86.19 Personal history of other infectious and parasitic diseases
CPT/HCPCS: 99283

== ENCOUNTER 2022-03-22 01:35 | Emergency (ER) | payer MEDICAID ==
[~2022-03-22] VITALS: Ht 170.2 cm; Wt 81.6 kg
--- NOTE | 2022-03-22 02:02 | NUR ---
called - no show in lobby or outside.
[2022-03-22 02:49] VITALS: BP 117/72
--- NOTE | 2022-03-22 03:11 | NUR ---
Dr. Tejada examining patient.
[2022-03-22] MEDS ORDERED: CYCL-711 PO (03:21)
[2022-03-22] MEDS ORDERED: TRAM50TA3 PO (03:21)
[2022-03-22] MEDS ORDERED: DOXY-487 PO (03:21)
[2022-03-22 03:32] VITALS: BP 120/74
--- NOTE | 2022-03-22 03:33 | NUR ---
Patient discharged with v/s stable. Written and verbal after care instructions given and explained. Patient alert, oriented and verbalized understanding of instructions. Ambulatory with steady gait. All questions addressed prior to discharge. ID band removed. Patient advised to follow up with PMD. Rx of FLEXERIL, DOXYCYCLINE HYCLATE, AND TRAMADOL given. Patient educated on indication of medication including possible reaction and side effects. Opportunity to ask questions provided and answered. VSS, A/OX4, UNLABORED BREATHING, AMBULATORY, AND CALM DEMEANOR.
== END 2022-03-22 03:31 | disposition home or self-care (01) ==
LOC: MED 01:35
DX: L03.116 Cellulitis of left lower limb (principal); M54.50 Low back pain, unspecified; J45.909 Unspecified asthma, uncomplicated; F17.200 Nicotine dependence, unspecified, uncomplicated; Z88.5 Allergy status to narcotic agent; Z79.1 Long term (current) use of non-steroidal anti-inflammatories (NSAID)
CPT/HCPCS: 99283

== ENCOUNTER 2022-07-24 01:07 | Emergency (ER) | payer MEDICAID ==
[~2022-07-24] VITALS: Ht 170.2 cm; Wt 81.6 kg
[2022-07-24 01:50] VITALS: BP 123/76
--- NOTE | 2022-07-24 01:53 | NUR ---
TO LOBBY A/W BED AMBULATORY
[2022-07-24 04:47] VITALS: BP 123/76
--- NOTE | 2022-07-24 04:47 | NUR ---
d/c left without paper work.
== END 2022-07-24 04:47 | disposition home or self-care (01) ==
LOC: MED 01:07
DX: S89.92XA Unspecified injury of left lower leg, initial encounter (principal); J45.909 Unspecified asthma, uncomplicated; Z79.1 Long term (current) use of non-steroidal anti-inflammatories (NSAID); Z88.8 Allergy status to other drugs, medicaments and biological substances; X58.XXXA Exposure to other specified factors, initial encounter; Y93.89 Activity, other specified; Y92.89 Other specified places as the place of occurrence of the external cause; Y99.8 Other external cause status
CPT/HCPCS: 73562; 99283

== ENCOUNTER 2022-08-28 15:49 | Emergency (ER) | payer MEDICAID ==
[~2022-08-28] VITALS: Ht 165.1 cm; Wt 80.3 kg
[2022-08-28 15:55] VITALS: BP 136/75
[2022-08-28] MEDS ORDERED: ACET-9882 PO (16:20)
[2022-08-28] MEDS ORDERED: CEPH-588 PO (16:20)
[2022-08-28] MEDS ORDERED: HYDR28GE TP (16:20)
[2022-08-28] MEDS ORDERED: CYCL-711 PO (16:20)
[2022-08-28] MEDS ORDERED: SULF-59 PO (16:20)
--- NOTE | 2022-08-28 16:20 | NUR ---
C/O REDNESS AND SWELLING ON THE RIGHT HAND X3DAYS, PT STATES THAT HE SLEEPS OUTSIDE AND MIGHT HAVE BEEN BITTEN BY SOMETHING ALLERGY: ROBAXIN, AMYTRIPTYLINE PMH: CHRONIC BACK PAIN
--- NOTE | 2022-08-28 16:27 | NUR ---
Patient discharged with v/s stable. Written and verbal after care instructions ABOUT CELLULITIS AND CHRONIC BACK PAIN given and explained. Patient alert, oriented and verbalized understanding of instructions. Ambulatory with steady gait. All questions addressed prior to discharge. ID band removed. Patient advised to follow up with PMD. Rx of TYLENOL EXTRA STRENGTH, KEFLEX, FLEXERIL, HYDROCORTISONE, BACTRIM DS given. Patient educated on indication of medication including possible reaction and side effects. Opportunity to ask questions provided and answered.
== END 2022-08-28 16:27 | disposition home or self-care (01) ==
LOC: MED 15:49
DX: L03.113 Cellulitis of right upper limb (principal); G89.29 Other chronic pain; M54.50 Low back pain, unspecified; R03.0 Elevated blood-pressure reading, without diagnosis of hypertension; J45.909 Unspecified asthma, uncomplicated; F17.210 Nicotine dependence, cigarettes, uncomplicated; Z88.1 Allergy status to other antibiotic agents; Z88.8 Allergy status to other drugs, medicaments and biological substances
CPT/HCPCS: 99283

== ENCOUNTER 2022-09-04 19:59 | Emergency (ER) | payer MEDICAID ==
[~2022-09-04] VITALS: Ht 170.2 cm; Wt 81.6 kg
[~2022-09-04 19:59] MED LIST changes: +ACET-9882 PO; +HYDR28GE TP
[2022-09-04 20:30] VITALS: BP 135/90
--- NOTE | 2022-09-04 20:32 | NUR ---
TO LOBBY A/W BED AMBULATORY
[2022-09-04] MEDS ORDERED: ACET-10509 PO (21:48)
[2022-09-04] MEDS ORDERED: CEPH-588 PO (21:48)
[2022-09-04] MEDS ORDERED: CYCL-711 PO (21:48)
[2022-09-04] MEDS ORDERED: cephALEXin 500 MG CAP PO ONE (21:50)
[2022-09-04] MEDS ORDERED: ACETAMINOPHEN EXTRA STRENGTH 500 MG TAB PO ONE (21:50)
[2022-09-04 22:00] VITALS: BP 135/90
--- NOTE | 2022-09-04 22:00 | NUR ---
Patient discharged with v/s stable. Written and verbal after care instructions given and explained. Patient alert, oriented and verbalized understanding of instructions. Ambulatory with steady gait. All questions addressed prior to discharge. ID band removed. Patient advised to follow up with PMD. Rx of tylenol, keflex, and flexeril given. Patient educated on indication of medication including possible reaction and side effects. Opportunity to ask questions provided and answered.
== END 2022-09-04 22:00 | disposition home or self-care (01) ==
LOC: MED 19:59
DX: L03.113 Cellulitis of right upper limb (principal); M54.50 Low back pain, unspecified; Z76.0 Encounter for issue of repeat prescription
CPT/HCPCS: 99283

== ENCOUNTER 2023-01-11 04:05 | Emergency (ER) | payer MEDICAID ==
[~2023-01-11] VITALS: Ht 170.2 cm; Wt 77.1 kg
[~2023-01-11 04:05] MED LIST changes: +ACET-10509 PO
[2023-01-11 04:22] VITALS: BP 125/96
[2023-01-11 04:33] VITALS: BP 125/96
--- NOTE | 2023-01-11 04:35 | NUR ---
pt went to bed 9
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
[2023-01-11] MEDS ORDERED: LIDOCAINE/EPI MPF 1%1:200000 30 ML VIAL INJ ONE (05:00)
[2023-01-11] MEDS ORDERED: SULF-59 PO (05:23)
--- NOTE | 2023-01-11 05:58 | NUR ---
Patient discharged with v/s stable. Written and verbal after care instructions given and explained. Patient alert, oriented and verbalized understanding of instructions. Ambulatory with steady gait. All questions addressed prior to discharge. ID band removed. Patient advised to follow up with PMD. Rx of BACTRIM given. Opportunity to ask questions provided and answered. DR. MELLO'S ORDERS REINFORCED
[2023-01-12] MEDS ORDERED: LIDOCAINE/EPI MPF 1%1:200000 30 ML VIAL INJ ONE (13:55)
== END 2023-01-11 05:58 | disposition home or self-care (01) ==
LOC: MED 04:05
DX: L02.416 Cutaneous abscess of left lower limb (principal); Z88.5 Allergy status to narcotic agent; Z88.8 Allergy status to other drugs, medicaments and biological substances; Z79.899 Other long term (current) drug therapy
CPT/HCPCS: 10060; 99284; J2001

== ENCOUNTER 2023-01-26 02:43 | Emergency (ER) | payer MEDICAID ==
[~2023-01-26] VITALS: Ht 170.2 cm; Wt 77.1 kg
[2023-01-26 02:45] VITALS: BP 115/77
--- NOTE | 2023-01-26 02:45 | NUR ---
to bed ambulatory
--- NOTE | 2023-01-26 02:46 | NUR ---
Patient is a 58-year-old homeless male, history of MRSA, who presents emergency room for evaluation of redness to his abdominal wall and left thigh.
--- NOTE | 2023-01-26 03:01 | NUR ---
Dr. Yang examining patient.
[2023-01-26] MEDS ORDERED: CYCL-711 PO (03:54)
[2023-01-26] MEDS ORDERED: SULF-59 PO (03:54)
[2023-01-26] MEDS ORDERED: SULFAMETH/TRIMETH DS 800/160MG 1 TAB PO ONE (03:55)
[2023-01-26 04:12] VITALS: BP 115/77
--- NOTE | 2023-01-26 04:15 | NUR ---
Patient discharged with v/s stable. Written and verbal after care instructions given and explained. Patient alert, oriented and verbalized understanding of instructions. Ambulatory with steady gait. All questions addressed prior to discharge. ID band removed. Patient advised to follow up with PMD. Rx of FLEXERIL, BACTRIM given. Patient educated on indication of medication including possible reaction and side effects. Opportunity to ask questions provided and answered.
== END 2023-01-26 04:15 | disposition home or self-care (01) ==
LOC: MED 02:43
DX: L03.311 Cellulitis of abdominal wall (principal); L03.116 Cellulitis of left lower limb; Z79.899 Other long term (current) drug therapy; Z79.1 Long term (current) use of non-steroidal anti-inflammatories (NSAID); Z79.2 Long term (current) use of antibiotics; Z88.8 Allergy status to other drugs, medicaments and biological substances; Z88.6 Allergy status to analgesic agent; Z91.030 Bee allergy status
CPT/HCPCS: 99284

== ENCOUNTER 2023-04-17 07:34 | Emergency (ER) | payer MEDICAID ==
[~2023-04-17] VITALS: Ht 170.2 cm; Wt 79.4 kg
[2023-04-17 07:58] VITALS: BP 109/72; RESP 18; TEMP 97.8; O2SAT 98
[2023-04-17] MEDS ORDERED: CYCL-711 PO (08:02)
[2023-04-17] MEDS ORDERED: CLIN300C52 PO (08:02)
[2023-04-17] MEDS ORDERED: BACTO TP (08:02)
[2023-04-17 08:07] VITALS: BP 109/72; PULSE 76; RESP 18; TEMP 97.8; O2SAT 98
== END 2023-04-17 08:07 | disposition home or self-care (01) ==
LOC: MED 07:34
DX: L08.9 Local infection of the skin and subcutaneous tissue, unspecified (principal); M54.50 Low back pain, unspecified; Z79.899 Other long term (current) drug therapy
CPT/HCPCS: 99283

== ENCOUNTER 2024-04-26 16:08 | Emergency (ER) | payer SELFPAY ==
[~2024-04-26] VITALS: Ht 154.9 cm; Wt 76.3 kg
[~2024-04-26 16:08] MED LIST changes: -ACET-10509 PO; +ACET500T99 PO; +BACTO TP; +CLIN300C52 PO; -HYDR28GE TP; +HYDR28GE5 TP; +NAPR-337 PO; -NAPR-54 PO
[2024-04-26 16:57] VITALS: BP 133/88; PULSE 91; RESP 16; TEMP 97.3; O2SAT 94
[2024-04-26 18:54] LABS: BILIRUBIN,URINE 1+ (NEGATIVE); BLOOD, URINE TRACE-I (NEGATIVE); COLOR,URINE YELLOW (YELLOW); LEUKOCYTE ESTERASE ,URINE NEGATIVE (NEGATIVE); NITRITE, URINE NEGATIVE (NEGATIVE); PROTEIN,URINE 1+ (NEGATIVE); UGLUCOSE NEGATIVE (NEGATIVE); UROBILINOGEN,URINE 0.2 EU/dL (0.2 - 1)
[2024-04-26 19:07] LABS: APPEARANCE,URINE SLIGHTLY HAZY (CLEAR)
[2024-04-26 19:26] LABS: ICTOTEST POSITIVE (NEGATIVE)
[2024-04-26 19:27] LABS: RBC,URINE 0-5 /HPF (0-5); WBC,URINE 0 /HPF (0-5)
[2024-04-26 19:28] LABS: BACTERIA,URINE 0-2 /HPF (None Seen); MUCUS,URINE None Seen /LPF (None Seen); SQUAMOUS EPITHELIAL CELL,UR 0-3 (FEW) /LPF (0-3 (FEW))
[2024-04-26 20:02] VITALS: BP 103/60; PULSE 81; RESP 14; TEMP 98.3; O2SAT 99
[2024-04-27] MEDS ORDERED: CIPR500T4 PO (19:51)
== END 2024-04-26 20:02 | disposition home or self-care (01) ==
LOC: MED 16:08
DX: R33.9 Retention of urine, unspecified (principal); R35.0 Frequency of micturition; R10.30 Lower abdominal pain, unspecified; Z79.899 Other long term (current) drug therapy; Z88.6 Allergy status to analgesic agent; Z88.8 Allergy status to other drugs, medicaments and biological substances
CPT/HCPCS: 51702; 81001; 99284

== ENCOUNTER 2024-04-27 16:28 | Inpatient (IN) | payer MEDICAID ==
[~2024-04-27] VITALS: Ht 170.2 cm; Wt 73.5 kg
[2024-04-27 17:37] VITALS: BP 130/78; PULSE 78; RESP 16; TEMP 97.3; O2SAT 95
[2024-04-27 19:36] LABS: APPEARANCE,URINE CLEAR (CLEAR); BILIRUBIN,URINE 1+ (NEGATIVE); BLOOD, URINE 3+ (NEGATIVE); COLOR,URINE YELLOW (YELLOW); LEUKOCYTE ESTERASE ,URINE TRACE (NEGATIVE); NITRITE, URINE POSITIVE (NEGATIVE); PROTEIN,URINE 2+ (NEGATIVE); UGLUCOSE TRACE (NEGATIVE)
[2024-04-27 19:43] LABS: ICTOTEST NEGATIVE (NEGATIVE)
[2024-04-27 19:50] LABS: RBC,URINE 20-50 /HPF (0-5)
[2024-04-27 19:51] LABS: BACTERIA,URINE >30 (MANY) /HPF (None Seen); MUCUS,URINE None Seen /LPF (None Seen); SQUAMOUS EPITHELIAL CELL,UR 0-3 (FEW) /LPF (0-3 (FEW)); TRICHOMONAS,URINE None Seen /HPF (None Seen); WHITE BLOOD CELL CASTS,URINE None Seen /LPF (None Seen); YEAST,URINE None Seen /HPF (None Seen)
[2024-04-27] MEDS ORDERED: CIPR500T4 PO (19:51)
[2024-04-27] MEDS ORDERED: cefTRIAXone 1,000 MG VIAL ONE (22:30)
[2024-04-27] MEDS ORDERED: HYDROcodone/APAP 10/325 MG 1 TAB TAB PO PRN (22:40)
[2024-04-27] MEDS ORDERED: ACETAMINOPHEN 325 MG TAB PO PRN (22:40)
[2024-04-27] MEDS ORDERED: ONDANSETRON 4 MG/2 ML VIAL IVP PRN (22:40)
[2024-04-27 22:43] LABS: BASOPHILS % (AUTO) 0.6 % (0.0-2.0); EOSINOPHILS # (AUTO) 0.5 K/uL (0-0.4); EOSINOPHILS % (AUTO) 6.4 % (0.0-4.0); HEMATOCRIT 37.4 % (36-52); HEMOGLOBIN 12.5 g/dL (12.0-18.0); LYMPHOCYTES # (AUTO) 2.9 K/uL (2.0-11.5); LYMPHOCYTES % (AUTO) 39.8 % (20.5-51.1); MEAN CORPUSCULAR HEMOGLOBIN 30 pg (27-31); MEAN CORPUSCULAR HGB CONC 34 g/dL (33-37); MEAN CORPUSCULAR VOLUME 90.5 fL (80-94); MONOCYTES # (AUTO) 0.7 K/uL (0.8-1.0); MONOCYTES % (AUTO) 9.2 % (1.7-9.3); NEUTROPHILS # (AUTO) 3.3 K/uL (1.8-7.7); PLATELET COUNT (AUTO) 192 K/uL (140-450); RED BLOOD CELL COUNT(AUTO) 4.13 MIL/uL (4.20-6.10); RED CELL DISTRIBUTION WIDTH 14.3 % (11.6-13.7); WHITE BLOOD COUNT (AUTO) 7.4 K/uL (4.8-10.8)
[2024-04-27 22:51] LABS: ANION GAP 10.1 (8-16); CALCIUM 8.7 mg/dL (8.5-10.1); CARBON DIOXIDE 27.6 mmol/L (21-32); CREATININE 0.7 mg/dL (0.6-1.3); POTASSIUM 3.7 mmol/L (3.5-5.1)
[2024-04-28] VITALS (8 sets, daily range): BP systolic 103–124; BP diastolic 56–75; PULSE 18–91; RESP 18; TEMP 97.2–98.2; O2SAT 97–100
[2024-04-28 06:51] LABS: BASOPHILS % (AUTO) 0.6 % (0.0-2.0); EOSINOPHILS # (AUTO) 0.5 K/uL (0-0.4); EOSINOPHILS % (AUTO) 8.2 % (0.0-4.0); HEMATOCRIT 36.7 % (36-52); HEMOGLOBIN 12.3 g/dL (12.0-18.0); LYMPHOCYTES # (AUTO) 2.2 K/uL (2.0-11.5); LYMPHOCYTES % (AUTO) 37.2 % (20.5-51.1); MEAN CORPUSCULAR HEMOGLOBIN 30 pg (27-31); MEAN CORPUSCULAR HGB CONC 34 g/dL (33-37); MEAN CORPUSCULAR VOLUME 90.5 fL (80-94); MONOCYTES # (AUTO) 0.7 K/uL (0.8-1.0); MONOCYTES % (AUTO) 12.2 % (1.7-9.3); NEUTROPHILS # (AUTO) 2.5 K/uL (1.8-7.7); NEUTROPHILS % (AUTO) 41.8 % (42.2-75.2); PLATELET COUNT (AUTO) 163 K/uL (140-450); RED BLOOD CELL COUNT(AUTO) 4.05 MIL/uL (4.20-6.10); WHITE BLOOD COUNT (AUTO) 5.9 K/uL (4.8-10.8)
[2024-04-28 07:01] LABS: ANION GAP 10.5 (8-16); CALCIUM 8.3 mg/dL (8.5-10.1); CARBON DIOXIDE 29.8 mmol/L (21-32); CREATININE 0.7 mg/dL (0.6-1.3); MAGNESIUM 1.7 mg/dL (1.8-2.4); PHOSPHORUS 3.8 mg/dL (2.5-4.9); POTASSIUM 3.3 mmol/L (3.5-5.1)
[2024-04-28] MEDS: MAGNESIUM OXIDE 400 MG TAB PO ONE (13:36)
[2024-04-28] MEDS: POTASSIUM CHLORIDE 10 MEQ TABER PO ONE (13:36)
[2024-04-28] MEDS: TAMSULOSIN 0.4 MG CAP PO SCH (13:36)
[2024-04-29] VITALS: BP 126/81; PULSE 77; RESP 18; TEMP 97.3; O2SAT 95
[2024-04-29 04:00] VITALS: BP 107/65; PULSE 68; PULSE 75; RESP 18; TEMP 97.3; O2SAT 95
[2024-04-29 06:15] LABS: BASOPHILS % (AUTO) 0.6 % (0.0-2.0); EOSINOPHILS # (AUTO) 0.4 K/uL (0-0.4); EOSINOPHILS % (AUTO) 7.7 % (0.0-4.0); HEMATOCRIT 36.6 % (36-52); HEMOGLOBIN 12.2 g/dL (12.0-18.0); LYMPHOCYTES # (AUTO) 2.1 K/uL (2.0-11.5); LYMPHOCYTES % (AUTO) 35.7 % (20.5-51.1); MEAN CORPUSCULAR HEMOGLOBIN 30 pg (27-31); MEAN CORPUSCULAR HGB CONC 33 g/dL (33-37); MEAN CORPUSCULAR VOLUME 90.2 fL (80-94); MONOCYTES # (AUTO) 0.6 K/uL (0.8-1.0); MONOCYTES % (AUTO) 9.6 % (1.7-9.3); NEUTROPHILS # (AUTO) 2.7 K/uL (1.8-7.7); NEUTROPHILS % (AUTO) 46.4 % (42.2-75.2); PLATELET COUNT (AUTO) 160 K/uL (140-450); RED BLOOD CELL COUNT(AUTO) 4.06 MIL/uL (4.20-6.10); WHITE BLOOD COUNT (AUTO) 5.8 K/uL (4.8-10.8)
[2024-04-29 06:38] LABS: ANION GAP 9.2 (8-16); CALCIUM 8.2 mg/dL (8.5-10.1); CARBON DIOXIDE 29.6 mmol/L (21-32); CREATININE 0.7 mg/dL (0.6-1.3); POTASSIUM 3.8 mmol/L (3.5-5.1)
[2024-04-29 08:00] VITALS: BP 92/64; PULSE 20; PULSE 66; PULSE 78; RESP 20; TEMP 98.2; O2SAT 96
[2024-04-29] MEDS ORDERED: TAMS0.4C96 PO ×2 (10:49→11:32)
[2024-04-29] MEDS ORDERED: SULF-58 PO (10:49)
[2024-04-29 12:00] VITALS: BP 113/71; PULSE 96; RESP 18; TEMP 97.8; O2SAT 97
== END 2024-04-29 13:20 | disposition home or self-care (01) | DRG 466 ==
LOC: MED 16:28 → MTU 22:55
PROVIDERS: ADMIT Student in an Organized Health Care Education/Training Program; ATTEND Student in an Organized Health Care Education/Training Program
DX: T83.518A Infection and inflammatory reaction due to other urinary catheter, initial encounter (principal); I10 Essential (primary) hypertension; N39.0 Urinary tract infection, site not specified; N40.1 Benign prostatic hyperplasia with lower urinary tract symptoms; Z88.8 Allergy status to other drugs, medicaments and biological substances
CPT/HCPCS: 36415; 76770; 80048; 81001; 83735; 84100; 85025; 87040; 87081; 87086; 96365; 99285; J0696; J7060; Q0092

== ENCOUNTER 2024-05-08 03:00 | Emergency (ER) | payer MEDICAID ==
[~2024-05-08] VITALS: Ht 172.7 cm; Wt 74.8 kg
[~2024-05-08 03:00] MED LIST changes: -ACET-9882 PO; -ACET500T99 PO; -BACTO TP; -CEPH-588 PO; -CLIN300C52 PO; -CYCL-711 PO; -DOXY-487 PO; -DOXY100T9 PO; -HYDR-5092 PO; -HYDR28GE5 TP; -IBUP-2213 PO; -IBUP-2218 PO; -NAPR-337 PO; -ONDA-188 SL; -PRED20TA5 PO; +SULF-58 PO; -SULF-59 PO; +TAMS0.4C96 PO; -TRAM50TA3 PO
[2024-05-08 03:17] VITALS: BP 134/71; PULSE 90; RESP 18; TEMP 98; O2SAT 95
[2024-05-08 05:05] LABS: APPEARANCE,URINE CLEAR (CLEAR); BILIRUBIN,URINE 1+ (NEGATIVE); BLOOD, URINE NEGATIVE (NEGATIVE); COLOR,URINE YELLOW (YELLOW); LEUKOCYTE ESTERASE ,URINE NEGATIVE (NEGATIVE); NITRITE, URINE NEGATIVE (NEGATIVE); PROTEIN,URINE 1+ (NEGATIVE); UGLUCOSE NEGATIVE (NEGATIVE)
[2024-05-08 05:11] LABS: ICTOTEST POSITIVE (NEGATIVE)
[2024-05-08 05:35] VITALS: BP 134/71; PULSE 90; RESP 18; TEMP 98; O2SAT 95
== END 2024-05-08 05:35 | disposition home or self-care (01) ==
LOC: MED 03:00
DX: R30.0 Dysuria (principal); Z79.899 Other long term (current) drug therapy; Z88.8 Allergy status to other drugs, medicaments and biological substances; Z88.6 Allergy status to analgesic agent
CPT/HCPCS: 81003; 99283

== ENCOUNTER 2024-05-23 13:09 | Emergency (ER) | payer MEDICAID ==
[~2024-05-23] VITALS: Ht 170.2 cm; Wt 79.4 kg
[2024-05-23 13:26] VITALS: BP 125/83; PULSE 86; RESP 16; TEMP 98.6; O2SAT 98
[2024-05-23] MEDS ORDERED: CEPH500C16 PO (14:27)
[2024-05-23] MEDS ORDERED: BACTO TP (14:27)
[2024-05-23] MEDS: ACETAMINOPHEN 650 MG/20.3 ML UDC PO ONE (14:37)
[2024-05-23] MEDS: BACITRACIN OINT 500 UNITS/GM PKT TP ONE (14:39)
[2024-05-23 15:00] VITALS: BP 125/83; PULSE 86; RESP 16; TEMP 98.6; O2SAT 98
== END 2024-05-23 15:00 | disposition home or self-care (01) ==
LOC: MED 13:09
DX: S90.512A Abrasion, left ankle, initial encounter (principal); L08.89 Other specified local infections of the skin and subcutaneous tissue; R03.0 Elevated blood-pressure reading, without diagnosis of hypertension; Z79.899 Other long term (current) drug therapy; Z88.8 Allergy status to other drugs, medicaments and biological substances; Z88.6 Allergy status to analgesic agent; X58.XXXA Exposure to other specified factors, initial encounter; Y92.89 Other specified places as the place of occurrence of the external cause; Y93.89 Activity, other specified; Y99.8 Other external cause status
CPT/HCPCS: 73610; 73620; 90471; 90715; 99284